=== PATIENT | female | born 1975 | race Caucasian/White ===

== ENCOUNTER → 2020-03-21 11:20 | Outpatient (POV) | payer MEDICAID, SELFPAY | PROVIDERS: PCP Emergency Medicine; Visit Provider Specialist | DX: M79.601 Pain in right arm (principal); M54.2 Cervicalgia; R20.0 Anesthesia of skin; R20.2 Paresthesia of skin | CPT/HCPCS: 95886; 95909 ==

== ENCOUNTER 2020-03-24 12:54 | Outpatient (RCR) | payer MEDICAID, SELFPAY ==
--- NOTE | 2020-03-24 14:16 | HMH.PTOPEV ---
PT Outpatient Evaluation Rehab PT Outpatient Evaluation Start: 03/24/20 13:41 Freq: Status: Active Protocol: Document 03/24/20 13:42 ANGUS (Rec: 03/24/20 14:14 ANGUS [id number]) Electronically Signed By Ab Billingsley, PT 03/24/20 13:42 Outpatient Therapy Subjective History Subjective History Patient is a 45 year old female presenting to oupatient PT with reports of chronic cervical spine pain of insidious onset starting approx 10 years ago. She reports B radicular symptoms to both hands R>L. 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 Pt also reports complaints of upper thoracic spine pain. Pt reports cervicogenic headaches/migraines staring at sub-occipital musculature. Pt reports previous imaging indicating cervical bone spur, though no reports on site. Chief Complaint Pain,Stiff,Paresthesia, Decreased Windshield Repair Technician Strength Symptom Type Ache,Burning,Numbness,Tingling Symptoms Relieved By OTC Meds,Shaking Symptoms Aggravated By Physical Activity,Lifting Prior Functional Limitations Reaching,Lifting,Housework, Sleeping,Recreation Activity Current Functional Limitations Reaching,Lifting,Housework, Sleeping,Recreation Activity Symptom Description Intermittent Level of pain today (0-10) 4 Pain scale - at its best (0-10) 0 Pain scale - at its worst (0-10) 10 Cervical Eval Palpation Cervical Muscles R Suboccipital,R CT Junction,L CT Junction,R Upper Trapezius ,L Upper Trapezius,R Thoracic Paraspinals,L Thoracic Paraspinals Cervical/Thoracic Palpation Findings Tenderness Posture Head/C-Spine Posture Sitting Position C-Spine Flattened Head/C-Spine Posture Standing Position C-Spine Flattened Flexibility Deficits Upper Trapezius Muscle Length (R) Moderate Tightness,(L) Moderate Tightness Levaetor Scapulae Muscle Length (R) Moderate Tightness,(L) Moderate Tightness Pectoralis Minor Muscle Length (R) Moderate Tightness,(L) Moderate Tightness Passive Joint Mobility Cervical PIVM
== END 2020-03-24 12:59 | disposition home or self-care (01) ==
LOC: PT 12:54
PROVIDERS: PCP Emergency Medicine; Visit Provider Specialist
DX: G43.719 Chronic migraine without aura, intractable, without status migrainosus (principal); M54.2 Cervicalgia; M54.5 Low back pain; G89.29 Other chronic pain; G62.9 Polyneuropathy, unspecified
CPT/HCPCS: 97163

== ENCOUNTER → 2020-04-11 14:18 | Outpatient (POV) | payer MEDICAID, SELFPAY ==
[2020-04-11 14:41] VITALS: BP 145/91; PULSE 76; RESP 18; TEMP 36.6; O2SAT 99; BMI 23.3
--- NOTE | 2020-04-18 07:54 | HMH.PMCON ---
Assessment and Plan (1) Sacroiliitis Status: Chronic Category: Medical Code(s): M46.1 - Sacroiliitis, not elsewhere classified (2) Degenerative joint disease (DJD) of lumbar spine Status: Chronic Qualifiers: Spinal osteoarthritis complication: with radiculopathy Qualified Code(s): M47.26 - Other spondylosis with radiculopathy, lumbar region Category: Medical Code(s): M47.816 - Spondylosis without myelopathy or radiculopathy, lumbar region - Assessment and plan all Dx Assessment and Plan for all problems:: We will schedule bilateral SI joint injections for the patient. She may be a candidate for further treatment of her SI joint pain. We will start with this to see if this is beneficial to her. She has positive Vahid sign SI joint compression sign and Melissa's test bilaterally. I will follow-up with her after this reassess her symptoms at that time she has been instructed to call the office if she has any issues prior to her next appointment. Dr. Patiño has reviewed this note and agrees with this plan of care. This note was dictated using voice recognition software and may contain errors or omissions HPI - Data of Consult Consult date: 04/11/20 Requesting Physician: Dhara Saini APRN Primary Care Provider: Uli Ernandez MD - Consult Narrative Reason for consult: Back pain, History of present illness: Ms. Rosario is a 45 year old female who presents today for consultation in regards to low back upper back pain. Patient has had pain for several years she also suffers from migraine she rates her pain a 7 out of 10. Any increased activity increases pain while heat and stretching decrease pain. Patient used to see pain management in [facility] where she did get some trigger point injections that were helpful. She has numbness and tingling in all her extremities. She is currently on Suboxone. Patient is seeing neurology for her migraines. On assessment patient has extreme tenderness over her lower back specifically over her SI joints. CC: Dhara Saini APRN [facility] History I have reviewed the patient's past medical history: Yes Medical History: Reports:: Depression, Hypertension, Migraine Denies:: Cancer, Diabetes Mellitus Type 1, Diabetes Mellitus Type 2, MRSA *Have you ever received a pneumonia vaccine?: Yes *Have you received a flu vaccine this season?: Yes Other Medical History: Reports: Other Other Surgeries: Yes: Appendectomy, Colonoscopy, , Dilation and Curettage, Hysterectomy-Total Amputation: No Fractures: No - *Social History Smoking Status: Never smoker # Packs/Day (cigarettes): 1 Alcohol Intake: never Alcohol Intake Frequency:: other Substance Use Type: former substance user, opiates *Occupational Status:: other Housing: house Household Members: other *Travel in the last 8 weeks: None - Psychiatric History Pschychiatric History:: Reports:: Depression Family Hx:: Unable to obtain Review of Systems - Review of Systems ROS General: no recent weight change, no fever, no sleep disturbances Respiratory: no cough, no shortness of air, no recurring pulmonary infections Cardiovascular/Peripheral Vascular: No chest pain, No palpitations, no edema, no shortness of breath. Gastrointestinal: no new onset incontinence, normal bowel movements reported Genitourinary: no new onset incontinence Musculoskeletal: Back pain, SI joint pain Psychiatric: normal mood/ affect Neurological: [denies new onset weakness in extremities], [denies new onset balance issues] Meds Home Medications Medication Instructions Recorded Confirmed Type fluticasone propionate 50 INTRANASAL 01/20/20 03/21/20 History mcg/actuation nasal spray,suspension lactulose 10 gram/15 mL oral PO 01/20/20 03/21/20 History solution sertraline 100 mg tablet 100 mg PO DAILY tab 01/20/20 03/21/20 History cyanocobalamin (vitamin B-12) 1,000 mcg PO DAILY #90 tab 01/27/20 03/21/20 Rx
== END ==
PROVIDERS: PCP Emergency Medicine; Visit Provider Clinical Nurse Specialist Family Health
DX: M46.1 Sacroiliitis, not elsewhere classified (principal); M51.36 Other intervertebral disc degeneration, lumbar region
CPT/HCPCS: 99202

== ENCOUNTER → 2020-04-11 15:17 | Outpatient (CLI) | payer MEDICAID, SELFPAY | PROVIDERS: PCP Emergency Medicine; Visit Provider Specialist | DX: R06.81 Apnea, not elsewhere classified (principal); R06.83 Snoring; R53.83 Other fatigue; G43.719 Chronic migraine without aura, intractable, without status migrainosus | CPT/HCPCS: 95806; 99202 ==

== ENCOUNTER 2020-04-22 11:18 | Day surgery (SDC) | payer MEDICAID, SELFPAY ==
[2020-04-22 11:29] VITALS: BP 116/71; PULSE 81; RESP 18; TEMP 36.6; O2SAT 100; BMI 25.2
--- NOTE | 2020-04-22 11:51 | HMH.PMPROC ---
- Procedure Date: 04/22/20 Time: 11:51 Anesthesiologist:: Klebre Patiño MD Complications:: None Pre-procedure Diagnosis:: Sacroiliitis Post-procedure Diagnosis:: Same Indications for Procedure:: This patient has a pleasant 45-year-old white female who we are treating for bilateral hip pain. She is tender over both SI joints. She has a positive Melissa's test bilaterally. She is positive Vahid test bilaterally. She has a positive SI joint compression test bilaterally. We will do bilateral SI joint injections under fluoroscopy today to help with her pain symptoms. Procedure Details:: B/L SI joint injection under fluoroscopy Informed consent was obtained and the risks and benefits of the procedure was explained to the patient. The patient was taken to the procedure room and placed prone on the procedure table. The patient was prepped using ChloraPrep. The skin and subcutaneous tissues overlying the SI joints were anesthetized using lidocaine. I placed a 22-gauge needle first in the left SI joint and second in the right SI joint. Needle placement was confirmed with dye. After this we injected 5 mL bupivacaine 0.25% and Depo-Medrol 40 mg into each SI joint. Patient tolerated the procedure well with no complication. Plan and Disposition:: We will follow-up with her in 2 weeks. Will reevaluate symptoms at that time.
[2020-04-22 11:57] VITALS: BP 140/78; PULSE 89
[2020-04-22 11:58] VITALS: BP 144/78; PULSE 85; RESP 18; O2SAT 99
[2020-04-22 12:05] VITALS: BP 112/73; PULSE 80; RESP 18; O2SAT 100
== END 2020-04-22 12:05 | disposition home or self-care (01) ==
LOC: SC.PAINP 11:19
PROVIDERS: PCP Emergency Medicine; Visit Provider Anesthesiology
DX: M46.1 Sacroiliitis, not elsewhere classified (principal); Z72.0 Tobacco use; F41.9 Anxiety disorder, unspecified; F32.9 Major depressive disorder, single episode, unspecified; G43.909 Migraine, unspecified, not intractable, without status migrainosus; Z90.710 Acquired absence of both cervix and uterus; Z90.49 Acquired absence of other specified parts of digestive tract
CPT/HCPCS: 27096; G0260; J1030; Q9966

== ENCOUNTER → 2020-05-13 09:29 | Outpatient (CLI) | payer MEDICAID, SELFPAY ==
[2020-05-13 13:24] LABS: Coronavirus 19 IgG Antibody Negative (Negative); Coronavirus 19 IgM Antibody Negative (Negative)
== END ==
PROVIDERS: Visit Provider Internal Medicine Gastroenterology
DX: Z01.818 Encounter for other preprocedural examination (principal)
CPT/HCPCS: 36415; 86328

== ENCOUNTER 2020-05-16 09:15 | Day surgery (SDC) | payer MEDICAID, SELFPAY ==
[2020-05-11 13:34] VITALS: BMI 25.4
[2020-05-16] VITALS (7 sets, daily range): BP systolic 91–123; BP diastolic 43–81; PULSE 65–78; RESP 16–18; TEMP 36.8–36.9; O2SAT 96–100
--- NOTE | 2020-05-16 10:38 | P.PCN_ITS ---
[facility] Procedure Note Procedure Note:: Colonoscopy Procedure Report: Colonoscopy Endoscopist: Osvaldo Boles II, MD Referring physician: Uli Ernandez MD Date of Procedure: May 16, 2020 Equipment: Olympus 180 variable stiffness pediatric colonoscope Sedation: MAC sedation Indication: Mrs. Rosario is a 45-year-old female with longstanding cons tipation/obstipation with incomplete defecation. She has been on various therapies in the past (docusate, Amitiza, Movantik, etc.) with variable improvement. She was taking lactulose twice daily. She has gone up to 16 days without a bowel movement. She did have an attempted colonoscopy in [facility] in [facility] which was incomplete because of the bowel preparation. She has moderate bloating. She reports no significant abdominal pain rectal bleeding or weight loss. She reports no family history of colon cancer. The patient is on Suboxone. Procedure: Prior to the procedure, a history and physical exam was performed, and patient's medications and allergies were reviewed. The risks, benefits and alternatives of the sedation and procedure were discussed with the patient. All questions were answered and informed consent was obtained. The patient was brought to the procedure room. Patient identification and proposed procedure were verified by the physician and the nurse. The patient was placed in a left lateral decubitus position and the scope was passed under direct vision. Throughout the procedure, the patient's blood pressure, pulse, and oxygen saturations were monitored continuously. The colonoscopy was accomplished without difficulty. The patient tolerated the procedure well. Findings: On digital rectal examination there was normal rectal tone. There were no external hemorrhoids. The colonoscope was introduced through the anal canal to the rectum and advanced to the cecum. The cecum visualization was marred with a moderate amount of brown liquid stool and residue. The remaining ascending and transverse colon and mucosa were grossly normal. There were scattered diverticuli throughout the descending and sigmoid colon (LEFT colon). The rectum itself was normal. Upon retroflexion within the rectum there were grade 1-2 internal hemorrhoids. The preparation was fair to poor throughout with Gambier Preparation Score of 5?6 out of 9. The cecal time was 10 minutes. Impression: 1. Left-sided diverticulosis 2. Grade 1-2 internal hemorrhoids Plan: I will discuss treatment options. I would certainly consider combination fiber bowel regimen with Linzess.
== END 2020-05-16 11:25 | disposition home or self-care (01) ==
LOC: OUTP 09:16
PROVIDERS: PCP Emergency Medicine; Visit Provider Internal Medicine Gastroenterology
PROC: 0DJD8ZZ Inspection of Lower Intestinal Tract, Via Natural or Artificial Opening Endoscopic (ICD-10-PCS; CPT 45378; principal; 2020-05-16 10:30)
DX: K57.30 Diverticulosis of large intestine without perforation or abscess without bleeding (principal); K64.0 First degree hemorrhoids; K59.02 Outlet dysfunction constipation; K59.09 Other constipation; E78.5 Hyperlipidemia, unspecified; K21.9 Gastro-esophageal reflux disease without esophagitis; Z88.5 Allergy status to narcotic agent; Z88.0 Allergy status to penicillin; Z88.8 Allergy status to other drugs, medicaments and biological substances; Z79.899 Other long term (current) drug therapy
CPT/HCPCS: 45378

== ENCOUNTER → 2020-06-06 08:28 | Outpatient (CLI) | payer MEDICAID, SELFPAY ==
--- NOTE | 2020-06-06 08:29 | MR_ITS ---
PROCEDURE: MR HEAD/BRAIN WO CON CLINICAL INDICATION: Intractable migraines with recurrent thunderclap headaches Occasional loss of consciousness COMPARISON: No exams were available for comparison TECHNIQUE: Routine multiplanar multi echo sequences are performed without gadolinium enhancement. FINDINGS: No midline shift, mass effect, intracranial hemorrhage, or hydrocephalus is evident. No evidence of acute infarction. The the cerebellopontine angles, cerebellum, and brainstem are unremarkable. The pituitary, optic chiasm, corpus callosum, and craniocervical junction have an unremarkable appearance. No mastoid effusion or sinus air-fluid level. There is some mucosal thickening of the ethmoid sinuses on both sides right slightly greater than left. Unremarkable periventricular white matter signal intensity IMPRESSION: 1. No acute intracranial findings. 2. Mild ethmoid sinus disease Dictated by: Emery Hope MD 06/08/2020 08:07 Electronically signed by Emery Hope MD in [place] 06/08/2020 08:07
--- NOTE | 2020-06-06 08:33 | XR_ITS ---
PROCEDURE: XR ORBIT BILATERAL MIN 4V CLINICAL INDICATION: RULE OUT METAL FOREIGN BODY FOR MRI COMPARISON: No exams were available for comparison TECHNIQUE: AP views are obtained of the orbits with the patient looking up and down. FINDINGS: No radio opaque foreign bodies evident. IMPRESSION: No radio opaque orbital foreign body identified. Dictated by: Slava Asencio 06/06/2020 08:51 Electronically signed by Slava Asencio in [place] 06/06/2020 08:51
--- NOTE | 2020-06-06 09:31 | CT_ITS ---
Procedure: CT ANGIO HEAD CLINICAL HISTORY: eval intracranial circulation,explosive headache Severe headache COMPARISON: No exams were available for comparison TECHNIQUE: IV Contrast: 100ml Optiray 350 Axial images obtained with sagittal and coronal reformats. All CT scans at the facility use one or more dose reduction, viz: automated exposure control, ma/kV adjustment per patient size (including targeted exams where dose is matched to indication, i.e. head), or iterative reconstruction technique. FINDINGS: No aneurysm, AVM, major intracranial occlusive process, or enhancing lesion is evident. No evidence of sagittal sinus thrombosis. Structures are midline. No hydrocephalus. The vertebral basilar system has an unremarkable appearance. Incidental note made of mild ethmoid sinus disease. IMPRESSION: Negative CT angiogram of the brain Dictated by: Emery Hope MD 06/08/2020 08:17 Electronically signed by Emery Hope MD in [place] 06/08/2020 08:17
== END ==
PROVIDERS: PCP Emergency Medicine; Visit Provider Specialist
DX: G43.719 Chronic migraine without aura, intractable, without status migrainosus (principal); G44.53 Primary thunderclap headache; G47.19 Other hypersomnia; G47.30 Sleep apnea, unspecified; R06.83 Snoring; R55 Syncope and collapse; H05.53 Retained (old) foreign body following penetrating wound of bilateral orbits
CPT/HCPCS: 70200; 70496; 70551; Q9967

== ENCOUNTER → 2020-08-15 14:28 | Outpatient (CLI) | payer MEDICAID, SELFPAY ==
[2020-08-15 16:39] LABS: Coronavirus 19 IgG Antibody Negative (Negative); Coronavirus 19 IgM Antibody Negative (Negative)
== END ==
PROVIDERS: Visit Provider Specialist
DX: Z03.818 Encounter for observation for suspected exposure to other biological agents ruled out (principal)
CPT/HCPCS: 36415; 86328

== ENCOUNTER → 2020-09-05 11:15 | Outpatient (POV) | payer MEDICAID, SELFPAY ==
--- NOTE | 2020-09-05 12:20 | HMH.PAINSOAP ---
[facility] Pain Management SOAP Note Subjective:: Patient is a very pleasant 45-year-old white female who we are treating for bilateral hip pain. She had SI joint injections back and April and has done extremely well. She is still having relief from these. Today she comes with a complaint of upper neck pain and headache she rates her pain today 3 out of 10. She is extremely tender at the base of her skull. Patient and I discussed occipital neuralgia and occipital nerve block she would like to move forward with this. ROS General: no recent weight change, no fever, no sleep disturbances Respiratory: no cough, no shortness of air, no recurring pulmonary infections Cardiovascular/Peripheral Vascular: No chest pain, No palpitations, no edema, no shortness of breath. Gastrointestinal: no new onset incontinence, normal bowel movements reported Genitourinary: no new onset incontinence Musculoskeletal: Headache, neck pain Psychiatric: normal mood/ affect Neurological: [denies new onset weakness in extremities], [denies new onset balance issues] Objective:: Physical Exam General: Alert and oriented x3, no acute distress, pleasant and cooperative, [on room air] Lungs: Resps E/U, Symmetrical chest expansion, Eyes: PERRL Musculoskeletal: Flexion and extension of cervical spine somewhat guarded secondary to pain, deep tendon reflexes normal, strength in upper and lower extremities [5/5], slightly antalgic gait noted Neurological: speech clear, periodontist equal, no gross sensory deficits Assessment:: Occipital neuralgia Plan:: We will move forward with bilateral occipital nerve blocks for the patient given her symptomology I do believe they would benefit her. I will follow-up with her after this reassess her symptoms at that time she has been instructed to call the office if she has any issues prior to her next appointment. Dr. Patiño has reviewed this note and agrees with this plan of care. This note was dictated using voice recognition software and may contain errors or omissions [facility] History I have reviewed the patient's past medical history: Yes Medical History: Reports:: Depression, Diabetes Mellitus Type 1, Gastroesophageal Reflux Disease(GERD), Hyperlipidemia, Hypertension, Migraine Denies:: Cancer, Diabetes Mellitus Type 2, Internal Pacemaker, MRSA, Seizures *Have you ever received a pneumonia vaccine?: No *Have you received a flu vaccine this season?: No Other Medical History: Reports: Arthritis, Blood Transfusion Reaction, Other Other Surgeries: Yes: Appendectomy, Colonoscopy, , Dilation and Curettage, Hysterectomy-Total, Hysterectomy-Partial, Other. No: Pacemaker Amputation: No Fractures: No - *Social History Smoking Status: Current every day smoker Tobacco Type: cigarettes # Packs/Day (cigarettes): 1 Alcohol Intake: never Alcohol Intake Frequency:: other Substance Use Type: opiates *Occupational Status:: disabled Housing: house Household Members: other *Travel in the last 8 weeks: None - Psychiatric History Pschychiatric History:: Reports:: Depression Family Hx:: Unable to obtain
[2020-09-05 12:47] VITALS: BP 117/85; PULSE 85; RESP 18; O2SAT 98; BMI 25.8
== END ==
PROVIDERS: PCP Emergency Medicine; Visit Provider Clinical Nurse Specialist Family Health
DX: M54.81 Occipital neuralgia (principal)
CPT/HCPCS: 99212

== ENCOUNTER 2020-09-16 10:26 | Day surgery (SDC) | payer MEDICAID, SELFPAY ==
[2020-09-16 11:36] VITALS: BP 129/79; PULSE 63; RESP 18; TEMP 36.7; O2SAT 100; BMI 25.9
--- NOTE | 2020-09-16 11:55 | HMH.PMPROC ---
- Procedure Date: 09/16/20 Time: 11:55 Anesthesiologist:: Kleber Patiño MD Complications:: None Pre-procedure Diagnosis:: Bilateral occipital neuralgia Post-procedure Diagnosis:: Same Indications for Procedure:: This patient is a pleasant 45-year-old white female who we have been treating for bilateral hip pain. She has previously had SI joint injections with good relief of her pain symptoms. She now complains of pain over the occiput. She has pain in the distribution of the greater and lesser occipital nerves bilaterally. We will plan on bilateral occipital nerve blocks today help her with her pain symptoms. Procedure Details:: Bilateral occipital nerve blocks Informed consent was obtained and the risk and benefits of the procedure was explained to the patient. Patient was taken to the procedure room. The occiput was cleansed using ChloraPrep. A 25-gauge needle was used first on the left side then on the right side to inject 5 mL bupivacaine 0.25% Depo-Medrol 40 mg in the distribution of the lesser and greater occipital nerves on each side. We used a total of 80 mg Depo-Medrol for both sides. Patient tolerated procedure well with no complications. Plan and Disposition:: We will follow-up with him in 2 weeks. Will reevaluate symptoms at that time.
[2020-09-16 12:21] VITALS: BP 180/98; PULSE 88; RESP 18
[2020-09-16 12:22] VITALS: BP 174/88; PULSE 85; RESP 18; O2SAT 98
[2020-09-16 12:40] VITALS: BP 136/84; PULSE 57; RESP 18; O2SAT 100
== END 2020-09-16 12:40 | disposition home or self-care (01) ==
LOC: SC.PAINP 10:27
PROVIDERS: PCP Emergency Medicine; Visit Provider Anesthesiology
DX: M54.81 Occipital neuralgia (principal); I10 Essential (primary) hypertension; K21.9 Gastro-esophageal reflux disease without esophagitis; F32.9 Major depressive disorder, single episode, unspecified; Z88.5 Allergy status to narcotic agent; Z88.0 Allergy status to penicillin; Z88.8 Allergy status to other drugs, medicaments and biological substances; Z79.899 Other long term (current) drug therapy
CPT/HCPCS: 64405; J1030

== ENCOUNTER → 2021-01-18 13:52 | Outpatient (CLI) | payer MEDICAID, SELFPAY ==
[2021-01-18 14:07] LABS: Alanine Aminotransferase 30 U/L (12-78); Albumin Level 4.5 g/dl (3.5-5.0); Albumin/Globulin Ratio 1.8 (1.1-1.8); Alkaline Phosphatase 95 U/L (38-126); Anion Gap 11.6 mEq/L (5-15); Aspartate Amino Transferase 31 U/L (14-36); Bilirubin,Total 0.3 mg/dl (0.2-1.3); Blood Urea Nitrogen 11 mg/dl (7-17); Calcium 9.6 mg/dl (8.4-10.2); Carbon Dioxide 28 mmol/L (22.0-30.0); Chloride 105 mmol/L (98-107); Chol/HDL Ratio 3.6 (1-3.5); Cholesterol 180 mg/dl (140-200); Estimated Glomerular Filt Rate 59 ml/min (>60); GFR (African American) 72 ML/MIN (>60); Globulin 2.5 g/dL (1.3-3.2); Glucose 166 mg/dl (74-100); HDL Cholesterol 50 mg/dl (40-60); Potassium 3.6 mmoL/L (3.5-5.1); Sodium 141 mmol/L (136-145); Triglycerides 242 mg/dl (30-150); VLDL Cholesterol 48 mg/dL (0-40)
[2021-01-18 14:18] LABS: Direct LDL Cholesterol 92.84 mg/dL (100-129)
[2021-01-18 14:23] LABS: 25-OH Vitamin D, Total 28.4 ng/mL (30-100)
[2021-01-18 14:26] LABS: Basophils # 0.1 K/mm3 (0-0.2); Basophils % 0.8 % (0.1-2.0); Eosinophils # 0.4 K/mm3 (0.0-0.4); Eosinophils % 5.1 % (0.1-12.0); Hematocrit 43.7 % (37.0-47.0); Hemoglobin 14.2 g/dL (12.2-16.2); Lymphocytes # 1.9 K/mm3 (0.7-4.5); Lymphocytes % 23.2 % (10-50); Mean Corpuscular HGB Conc 32.5 g/dL (31.8-35.4); Mean Corpuscular Hemoglobin 30.5 pg (27.0-31.2); Mean Corpuscular Volume 93.9 fl (81-99); Mean Platelet Volume 8.9 fl (7.4-10.4); Monocytes # 0.3 K/mm3 (0.1-1.0); Monocytes % 3.2 % (1.7-9.3); Neutrophils # 5.4 K/mm3 (1.8-7.8); Neutrophils % 67.7 % (37.0-80.0); Platelet Count 299 K/mm3 (142-424); Red Blood Count 4.65 M/mm3 (4.20-5.40); Red Cell Distribution Width 13.1 % (11.5-17.5)
[2021-01-18 14:37] LABS: Thyroid Stimulating Hormone 1.88 uIU/mL (0.465-4.68)
[2021-01-18 21:16] LABS: Free T4 (Free Thyroxine) 0.89 ng/dl (0.78-2.19)
== END ==
PROVIDERS: Visit Provider Emergency Medicine
DX: R53.83 Other fatigue (principal); E55.9 Vitamin D deficiency, unspecified; I10 Essential (primary) hypertension
CPT/HCPCS: 80053; 80061; 82306; 84439; 84443; 85025

== ENCOUNTER 2021-01-23 21:16 | Day surgery (SDC) | payer MEDICAID, SELFPAY ==
--- NOTE | 2021-01-23 21:09 | ECG_ITS ---
APPROVED REPORT Exam: Resting ECG HR:79 bpm ECG Measurements Heart Rate 79 AXES DE 152 P 56 QRSd 84 QRS 37 QT 398 T 39 QTc 456 Conclusion Normal sinus rhythm Normal ECG Electronically signed by : Miguel Angel Herrera, 01/24/2021 19:36:32
[2021-01-23 21:17] VITALS: RESP 20; TEMP 36.5; O2SAT 98; BMI 28.0
--- NOTE | 2021-01-23 21:57 | XR_ITS ---
PROCEDURE: XR CHEST 2V CLINICAL HISTORY: chest pain COMPARISON: No exams were available for comparison FINDINGS: The cardiomediastinal silhouette and pulmonary vascularity are within normal limits. The lungs are clear without infiltrates, suspicious nodules, or pleural effusions. No acute bony abnormalities. IMPRESSION: No acute findings. Dictated by: Emery Hope MD 01/24/2021 05:39 Emery Hope MD in [place] 01/24/2021 05:39
[2021-01-23 22:08] LABS: Basophils # 0.1 K/mm3 (0-0.2); Basophils % 0.5 % (0.1-2.0); Eosinophils # 0.5 K/mm3 (0.0-0.4); Hematocrit 38.7 % (37.0-47.0); Lymphocytes % 26.3 % (10-50); Mean Corpuscular HGB Conc 33.6 g/dL (31.8-35.4); Mean Corpuscular Hemoglobin 30.2 pg (27.0-31.2); Mean Platelet Volume 8.2 fl (7.4-10.4); Monocytes # 0.4 K/mm3 (0.1-1.0); Monocytes % 3.5 % (1.7-9.3); Neutrophils # 7.6 K/mm3 (1.8-7.8); Neutrophils % 65.7 % (37.0-80.0); Platelet Count 264 K/mm3 (142-424); Red Cell Distribution Width 13.2 % (11.5-17.5); White Blood Count 11.5 K/mm3 (4.8-10.8)
[2021-01-23 22:09] LABS: Chloride 106 mmol/L (98-107); Potassium 3.2 mmoL/L (3.5-5.1); Sodium 138 mmol/L (136-145)
[2021-01-23 22:12] LABS: Anion Gap 9.2 mEq/L (5-15); Blood Urea Nitrogen 15 mg/dl (7-17); Calcium 9.7 mg/dl (8.4-10.2); Carbon Dioxide 26 mmol/L (22.0-30.0); Creatinine Clearance Estimated 94 mL/min (50-200); Estimated Glomerular Filt Rate 59 ml/min (>60); GFR (African American) 72 ML/MIN (>60); Glucose 106 mg/dl (74-100)
[2021-01-23 22:17] LABS: C-Reactive Protein 2.1 mg/L (0-4)
[2021-01-23 22:40] LABS: Troponin I < 0.01 ng/ml (0.00-0.034)
[2021-01-23 22:48] LABS: Procalcitonin 0.043 ng/mL (0.0-2.0)
[2021-01-23 22:57] LABS: Erythrocyte Sedimentation Rate 18 mm/hr (0-20)
--- NOTE | 2021-01-23 23:09 | HMH.EDCP ---
ED Disposition Clinical Impression: Unstable angina pectoris, Tobacco use, Overweight (BMI 25.0-29.9) Hypertension Qualifiers: Hypertension type: essential hypertension Qualified Code(s): I10 - Essential (primary) hypertension Disposition: Admitted as Observation Condition on Discharge: Good Referrals: Uli Ernandez MD [Primary Care Provider] - - Critical Care Critical Care Time: No Attestation: On 01/23/21, the high probability of a clinically significant, sudden or life threatening deterioration of the following system(s) required my full and direct attention, intervention and personal management. The time I documented below is in addition to time spent performing reported procedures but includes the following listed in this critical care notation. Medical Decision Making - Medical Records Medical records reviewed: Yes: I reviewed the patient's medical records. - Indra Inquiry Pt receiving controlled substance: No Vital Signs: 01/23/21 21:17 Temperature 97.7 F Temperature Source Oral Respiratory Rate 20 02 Sat by Pulse Oximetry 98 Oxygen Delivery Method Room Air - Lab Data Lab results reviewed: Yes: I reviewed the patient's lab results. Lab Results 01/23/21 21:50: WBC 11.5 H, RBC 4.30, Hgb 13.0, Hct 38.7, MCV 90.0, MCH 30.2, MCHC 33.6, RDW 13.2, Plt Count 264, MPV 8.2, Neut % (Auto) 65.7, Lymph % (Auto) 26.3, [place] % (Auto) 3.5, Eos % (Auto) 4.0, Baso % (Auto) 0.5, Neut # (Auto) 7.6, Lymph # (Auto) 3.0, [place] # (Auto) 0.4, Eos # (Auto) 0.5 H, Baso # (Auto) 0.1, ESR 18 01/23/21 21:50: Sodium 138, Potassium 3.2 L, Chloride 106, Carbon Dioxide 26, Anion Gap 9.2, BUN 15, Creatinine 1.00, Estimated Creat Clear 94, Estimated GFR 59, Est GFR ( Amer) 72, Glucose 106 H, Calcium 9.7, Troponin I < 0.01, C-Reactive Protein 2.1, Procalcitonin 0.043 Result diagrams: 01/23/21 21:50 01/23/21 21:50 Orders (Tests/Meds): ED MEDICATIONS Generic Name Dose Route Start Last Admin Trade Name Lanceq PRN Reason Stop Dose Admin Sodium Chloride 1,000 mls @ 999 mls/hr 01/23/21 22:15 01/23/21 22:13 Sod Chlor 0.9% 1000ml Bag IV 01/23/21 23:15 999 mls/hr .Q1H1M ORLIN Administration Sodium Chloride 8 ml 01/23/21 22:06 Sodium Chloride 0.9% 10ml Vial IV 02/22/21 22:05 NEEDED PRN dilute pepcid Discontinued Medications Generic Name Dose Route Start Last Admin Trade Name Freq PRN Reason Stop Dose Admin Acetaminophen 650 mg 01/23/21 22:09 01/23/21 22:55 Acetaminophen 325mg Tab PO 01/23/21 22:10 650 mg ONCE ONE Administration Famotidine 20 mg 01/23/21 22:06 01/23/21 22:48 Famotidine 20mg/2ml Vial IV 01/23/21 22:07 20 mg ONCE ONE Administration Metoclopramide HCl 10 mg 01/23/21 22:06 01/23/21 22:48 Metoclopramide Hcl 10mg/2ml Vial IVP 01/23/21 22:07 10 mg ONCE ONE Administration Ondansetron HCl 4 mg 01/23/21 22:06 01/23/21 22:48 Ondansetron 4mg/2ml Vial IV 01/23/21 22:07 4 mg ONCE ONE Administration ORDERS Category Date Time Status CXR 2 view (NOT portable) [XR chest 2V] Stat Exams 01/23/21 21:57 Taken Covid-19 Nasal PCR ([facility]) Routine Lab 01/23/21 21:53 Received Troponin I Q3H Lab 01/24/21 01:00 Ordered Troponin I Q3H Lab 01/24/21 04:00 Ordered - Radiology Data #1 Image(s): Chest Image Reviewed: Yes I reviewed the patient's radiology image Preliminary Findings: Normal/NAD - ECG Data Tracing #1 Normal Sinus Rhythm: Yes Ischemic changes: non-specific ST-T wave changes Medical Decision Narrative: has what sds like angina with sig risk factors and will admit with orders Chest Pain HPI - General Chief Complaint: Chest Pain Stated Complaint: chest pain with h/o HI Time Seen by Provider: 03/15/21 22:00 Mode of Arrival: Ambulatory Source of Information: Patient, Spouse, Medical Record Limitations: No Limitations Description of Symptoms (Recalled from ER Triage Doc. by RN): Pt c/o chest pain that has
[2021-01-24] VITALS (14 sets, daily range): BP systolic 114–136; BP diastolic 70–89; PULSE 60–88; RESP 12–20; TEMP 36.5–36.6; O2SAT 95–100
--- NOTE | 2021-01-24 | IR_ITS ---
APPROVED REPORT Patient Location: Inpatient Fashion Merchandiser: ELENA Sung RT (R) PROCEDURES Left heart catheterization Left ventriculogram Selective coronary angiogram INDICATION Risk factors for coronary disease, Unstable angina Informed consent was obtained prior to the procedure. COMPLICATIONS NONE Estimated Blood Loss: LESS THAN 10 ML TECHNIQUE One percent lidocaine used to anesthetize the right anterior aspect of the wrist. The right radial artery was accessed via the Seldinger technique. A 6 Bel[place]ian sheath was placed in the right radial artery. 2.5 mg of verapamil, 800 mcg of nitroglycerin, 1mg Lidocaine and 5000 U Heparin were given through the arterial sheath. The trap catheter was also used to perform left heart catheterization, left ventriculogram and selective coronary angiogram. At the end of the procedure the sheath was removed good hemostasis was achieved using Traclet band, patient was transferred to the postop holding area in stable condition. ANGIOGRAPHIC RESULTS The left main artery Normal The left anterior descending artery Normal The circumflex artery Dominant normal The right coronary artery Nondominant normal The SMITH ventriculogram reveals Normal 65% The left ventricular end-diastolic pressure 10 mmHg IMPRESSION Normal coronary arteries Normal ejection fraction Normal left ventricular end-diastolic pressure PLAN 1. Medical management 2. Evaluation of noncardiac chest pain Electronically signed by : Larry Chiang, 01/24/2021 14:47:14
[2021-01-24 01:50] LABS: Troponin I < 0.01 ng/ml (0.00-0.034)
[2021-01-24 04:30] LABS: Troponin I < 0.01 ng/ml (0.00-0.034)
--- NOTE | 2021-01-24 06:00 | CA_ITS ---
APPROVED REPORT EXAM: Comprehensive 2D, Doppler, and color-flow Echocardiogram Information Systems Security Developer: Destini Velez RVT Ht: 5 ft 9 in Wt: 190lbs BSA: 2.02 BP: 142/86 mmHg Indications: ANGINA,GERD,SMOKER,HTN,HLD 2D Dimensions LVOT 1.98 cm (M/F) 1.5-2.5 LA Volume 19.30 mL LA Volume Index 9.55 mL/m2 (M/F) 16-34 M-Mode Dimensions RVDd 2.43 cm (0.9-2.6) LA Diam 3.16 cm (1.9-4.0) LVDd 5.00 cm (3.5-5.7) Ao Diam 2.83 cm (2.0-3.7) LVDs 3.25 cm (3.5-5.7) IVSd 0.71 cm (0.6-1.1) PWd 0.61 cm (0.6-1.1) EF (Teich) 64.00% FS 35.00% EDV (Teich) 118.20 mL ESV (Teich) 42.50 mL LV Diastology E Decel Time 210.00 (160-240 msec) E/A Ratio 1.0 MED E' 7.80 (< 7 cm/sec) E'/MED E' Ratio 9.08 (>14) LAT E' 12.30 (<10 cm/sec) E/LAT E' Ratio 5.76 (>14) Mitral Valve MV E Max Julio. 71.00 (40-130 cm/s) MV A Velocity 71.00 (40-130 cm/s) E/A Ratio 0.99 MV Decel. Time 210.00 (160-240 ms) MV PHT 62.00 ms Pulmonary Valve PV Peak Velocity 66.00 (50-150 cm/s) Tricuspid Valve TR P. Velocity 237.00 cm/s RAP Estimate 10.00 mmHg RVSP 32.50 mmHg Left Ventricle Left atrium normal size, left ventricle is normal size, there is no concentric left ventricular hypertrophy, visually estimated ejection fraction 55% with no regional wall motion abnormality, diastolic parameters are inconclusive. Right Ventricle Right atrium and right ventricle are normal size and contractility. Aortic Valve Aortic valve is grossly normal, there is no aortic stenosis or aortic insufficiency. Mitral Valve Mitral valve grossly normal, there is trace mitral regurgitation. Tricuspid Valve Tricuspid grossly normal, there is trace tricuspid regurgitation. Pulmonic Valve Pulmonic valve is poorly visualized. Great Vessels Aortic root is normal size. Pericardium No significant pericardial effusion noted. Conclusion 1. Normal left ventricular size, preserved left ventricular systolic function, visually estimated ejection fraction 55% with no regional wall motion abnormality, diastolic parameters are inconclusive. 2. Trace mitral and tricuspid regurgitation. 3. No significant pericardial effusion noted. Electronically signed by : Cristian Craft, 01/24/2021 20:05:54
[2021-01-24 06:18] LABS: Anion Gap 9.6 mEq/L (5-15); Blood Urea Nitrogen 13 mg/dl (7-17); Carbon Dioxide 26 mmol/L (22.0-30.0); Chloride 107 mmol/L (98-107); Chol/HDL Ratio 3.5 (1-3.5); Cholesterol 130 mg/dl (140-200); Creatinine Clearance Estimated 104 mL/min (50-200); Estimated Glomerular Filt Rate 67 ml/min (>60); GFR (African American) 81 ML/MIN (>60); Glucose 93 mg/dl (74-100); HDL Cholesterol 37 mg/dl (40-60); Magnesium 1.7 mg/dl (1.6-2.3); Potassium 3.6 mmoL/L (3.5-5.1); Sodium 139 mmol/L (136-145); Triglycerides 124 mg/dl (30-150); VLDL Cholesterol 25 mg/dL (0-40)
[2021-01-24 06:25] LABS: Basophils # 0.1 K/mm3 (0-0.2); Basophils % 0.7 % (0.1-2.0); Eosinophils # 0.4 K/mm3 (0.0-0.4); Eosinophils % 5.1 % (0.1-12.0); Hematocrit 35.1 % (37.0-47.0); Hemoglobin 11.8 g/dL (12.2-16.2); Lymphocytes # 2.5 K/mm3 (0.7-4.5); Lymphocytes % 28.8 % (10-50); Mean Corpuscular HGB Conc 33.5 g/dL (31.8-35.4); Mean Corpuscular Hemoglobin 30.3 pg (27.0-31.2); Mean Corpuscular Volume 90.5 fl (81-99); Mean Platelet Volume 8.3 fl (7.4-10.4); Monocytes # 0.4 K/mm3 (0.1-1.0); Monocytes % 4.5 % (1.7-9.3); Neutrophils # 5.4 K/mm3 (1.8-7.8); Neutrophils % 60.9 % (37.0-80.0); Platelet Count 219 K/mm3 (142-424); Red Blood Count 3.88 M/mm3 (4.20-5.40); Red Cell Distribution Width 13.2 % (11.5-17.5); White Blood Count 8.8 K/mm3 (4.8-10.8)
[2021-01-24 06:29] LABS: Direct LDL Cholesterol 66.44 mg/dL (100-129)
[2021-01-24 06:34] LABS: Calcium 8.5 mg/dl (8.4-10.2)
--- NOTE | 2021-01-24 08:00 | PC.NURSE ---
Pt sleeping at this time. No needs
--- NOTE | 2021-01-24 09:56 | HMH.CNCARD ---
<Radha Dick - Last Filed: 01/24/21 09:56> History of Present Illness Consult date: 01/24/21 Requesting physician: Uli Ernandez Consult reason: chest pain Chief complaint: chest pain History of present illness: This is a 46-year-old white female who presented to the emergency department with complaints of chest pain. The patient states that she feels a pounding pressure sensation in the midsternal aspect of her chest and radiates to her left arm and between her shoulder blades and up into her neck. The patient states that the chest pain has been going on for the last 5 or 6 days but got significantly worse through the night last night and she decided to come into the emergency department. She rates the pain a 6 out of 10 in intensity. It is associated with shortness of breath, diaphoresis and occasionally nausea and vomiting. She states that she does not get nauseous or vomit every time but on occasion this does happen. She states that she has a severe headache today. She states that her chest pain gets worse with exertion and nothing really helps to improve the pain. She states that the episodes of chest pain last several minutes before they resolve on their own. The patient states that she has never had symptoms like this before. She does report a family history of ischemic heart disease in both her mother and her father. She does have hypertension, hyperlipidemia and is a tobacco user. [facility] History I have reviewed the patient's past medical history: Yes Medical History: Reports:: Depression, Gastroesophageal Reflux Disease(GERD), Hyperlipidemia, Hypertension, Migraine Denies:: Cancer, Diabetes Mellitus Type 1, Diabetes Mellitus Type 2, Internal Pacemaker, MRSA, Seizures *Have you ever received a pneumonia vaccine?: No *Have you received a flu vaccine this season?: No Other Medical History: Reports: Arthritis, Other. Denies: Blood Transfusion Reaction Other Surgeries: Yes: Appendectomy, Colonoscopy, , Dilation and Curettage, Hysterectomy-Total, Hysterectomy-Partial, Other (uterine ablation). No: Pacemaker Amputation: No Fractures: No - *Social History Smoking Status: Current every day smoker Tobacco Type: cigarettes # Packs/Day (cigarettes): 1 Alcohol Intake: never Alcohol Intake Frequency:: other Substance Use Type: opiates *Occupational Status:: unemployed Housing: house Household Members: spouse *Travel in the last 8 weeks: None - Psychiatric History Pschychiatric History:: Reports:: Depression Family Hx:: Cancer, Hypertension Meds Home Medications Medication Instructions Recorded Confirmed Type buprenorphine 8 mg-naloxone 2 mg 1 tab SUBLINGUAL DAILY 03/15/20 01/18/21 History sublingual tablet lactulose 10 gram/15 mL oral 1 g PO DAILY #45 ml 08/02/20 01/18/21 Rx solution ubrogepant 100 mg tablet 100 mg .ROUTE .COMPLEX #10 tab 08/02/20 01/18/21 Rx Pantoprazole Sodium 40 mg PO DAILY 09/16/20 01/18/21 History tizanidine 4 mg tablet 4 mg PO HS #30 tab 09/29/20 01/18/21 Rx cyanocobalamin (vitamin B-12) 1,000 mcg PO DAILY #90 tab 10/28/20 01/18/21 Rx 1,000 mcg tablet,extended release docusate sodium 100 mg capsule 100 mg PO BID #180 cap 10/28/20 01/18/21 Rx fluticasone furoate 27.5 See Rx Instructions .ROUTE 10/28/20 01/18/21 Rx mcg/actuation nasal .COMPLEX #5.9 milliliter spray,suspension atorvastatin 20 mg tablet See Rx Instructions .ROUTE 11/02/20 01/18/21 Rx .COMPLEX #30 tab erenumab-aooe 140 mg/mL 140 mg SQ QMONTH #1 ml 12/06/20 01/18/21 Rx subcutaneous auto-injector ergocalciferol (vitamin D2) 1,250 See Rx Instructions .ROUTE 12/21/20 01/18/21 Rx mcg (50,000 unit) capsule .COMPLEX #12 cap hydrochlorothiazide 12.5 mg capsule 12.5 mg PO DAILY #90 cap 12/21/20 01/18/21 Rx levocetirizine 5 mg tablet 5 mg PO DAILY #90 tab 12/21/20 01/18/21 Rx ropinirole 1 mg tablet 1 mg PO QHS #90 tab 12/21/20 01/18/21 Rx sertraline 100 mg tablet 100 mg PO DAILY #90 tab 12/21/20 01/18/21 Rx ibuprofen
--- NOTE | 2021-01-24 10:19 | HMH.PHAVTE ---
[facility] Pharmacy VTE Monitoring - Patient Demographics Admission date: 01/24/21 Report Date: 01/24/21 Time: 10:19 Allergies/Adverse Reactions: Patient Allergies morphine Allergy (Intermediate, Verified 01/18/21 10:41) Hives nalbuphine [From Nubain] Allergy (Intermediate, Verified 01/18/21 10:41) hives Penicillins Allergy (Intermediate, Verified 01/18/21 10:41) Hives promethazine [Phenergan] Allergy (Intermediate, Verified 01/18/21 10:41) Hives sumatriptan [From Imitrex] Allergy (Intermediate, Verified 01/18/21 10:41) Hives Height: 1.75 m Weight: 86.183 kg Patient Problems: Current Active Problems Unstable angina pectoris (Acute) Overweight (BMI 25.0-29.9) (Acute) Unstable angina (Acute) HLD (hyperlipidemia) (Chronic) Family history of ischemic heart disease (Chronic) Tobacco use (Chronic) Hypertension (Chronic) - VTE Risk Labs: VTE Related Lab Results Hgb 11.8 g/dL (12.2-16.2) L 01/24/21 05:05 Hct 35.1 % (37.0-47.0) L 01/24/21 05:05 Plt Count 219 K/mm3 (142-424) 01/24/21 05:05 BUN 13 mg/dl (7-17) 01/24/21 05:05 Creatinine 0.90 mg/dl (0.52-1.04) 01/24/21 05:05 Estimated Creat Clear 104 mL/min (50-200) 01/24/21 05:05 Clinical Trial Participant: No - Prophylaxis VTE Prophylaxis Ordered?: Yes Types of VTE Prophylaxis: TEDS Knee High
--- NOTE | 2021-01-24 11:00 | PC.NURSE ---
Pt resting. No needs/issues at this time.
--- NOTE | 2021-01-24 12:00 | PC.NURSE ---
Pt comes to nurses station and advised pt is feeling nauseated at this time. VO given for 4mg of zofran. Administered at this time.
--- NOTE | 2021-01-24 15:30 | HMH.HPDC ---
General - General Admission date:: 01/23/21 Discharge date: 01/24/21 *Admission Date: 01/24/21 *Chief complaint: Mid-Sternal Chest Pain *History of present illness: 46 YOF presented to the [facility] ED with past medical history of HTN, HLD, tobacco abuse, and family history of CAD for reports of mid-sternal CP, describes as a pounding and pressure . She admits pounding/pressure radiates up into her left neck, into her L arm, and back to hwer shoulder blades. She admits this pain has occurred for the last 5-6 days and tonight was worse than before. She reports having shortness of breath and diaphoresis during all episodes and occasionally N/V. She states CP will occur during exertion as well as resting and all other episodes have subsided in several minutes,this time pain continued. [facility] History I have reviewed the patient's past medical history: Yes Medical History: Reports:: Depression, Gastroesophageal Reflux Disease(GERD), Hyperlipidemia, Hypertension, Migraine Denies:: Cancer, Diabetes Mellitus Type 1, Diabetes Mellitus Type 2, Internal Pacemaker, MRSA, Seizures *Have you ever received a pneumonia vaccine?: No *Have you received a flu vaccine this season?: No Other Medical History: Reports: Arthritis, Other. Denies: Blood Transfusion Reaction Other Surgeries: Yes: Appendectomy, Colonoscopy, , Dilation and Curettage, Hysterectomy-Total, Hysterectomy-Partial, Other (uterine ablation). No: Pacemaker Amputation: No Fractures: No - *Social History Smoking Status: Current every day smoker Tobacco Type: cigarettes # Packs/Day (cigarettes): 1 Alcohol Intake: never Alcohol Intake Frequency:: other Substance Use Type: opiates *Occupational Status:: unemployed Housing: house Household Members: spouse *Travel in the last 8 weeks: None - Psychiatric History Pschychiatric History:: Reports:: Depression Family Hx:: Cancer, Hypertension Review of Systems - Review of Systems Review of systems:: pertinent systems reviewed and negative unless documented below - Constitutional Reports excessive sweating, Reports headache(s), Denies body ache(s), Denies chills - Eyes Denies blind spots, Denies loss of vision - ENT Denies bleeding gums, Denies ear pain - *Cardiovascular Reports chest pain, Reports chest pain at rest, Reports chest pain with activity, Reports excessive sweating, Reports shortness of breath, Reports shortness of breath with activity, Denies leg swelling - *Respiratory Reports shortness of breath, Reports shortness of breath with activity, Denies change in phlegm color - *Gastrointestinal Denies abdominal pain, Denies change in bowel habits - *Musculoskeletal Denies joint pain, Denies back pain - Integumentary/Breasts Denies hair loss, Denies non-healing lesions - *Neurologic Reports headache(s), Denies dizziness, Denies localized weakness, Denies sensory deficit - Psychiatric Denies abnormal sleep pattern, Denies hearing things others do not hear - Endocrine Denies cold intolerance, Denies heat intolerance - Hematologic/Lymphatic Denies easy bleeding, Denies enlarged lymph nodes - Allergic/Immunologic Denies GI upset with certain foods, Denies wheezing Exam Vital signs and Labs for Last 24 Hours: Temp Pulse Resp BP Pulse Ox 97.8 F 70 18 127/79 96 01/24/21 14:00 01/24/21 15:06 01/24/21 15:05 01/24/21 15:05 01/24/21 15:05 Laboratory Results - last 24 hr 01/23/21 21:50: WBC 11.5 H, RBC 4.30, Hgb 13.0, Hct 38.7, MCV 90.0, MCH 30.2, MCHC 33.6, RDW 13.2, Plt Count 264, MPV 8.2, Neut % (Auto) 65.7, Lymph % (Auto) 26.3, [place] % (Auto) 3.5, Eos % (Auto) 4.0, Baso % (Auto) 0.5, Neut # (Auto) 7.6, Lymph # (Auto) 3.0, [place] # (Auto) 0.4, Eos # (Auto) 0.5 H, Baso # (Auto) 0.1, ESR 18 01/23/21 21:50: Sodium 138, Potassium 3.2 L, Chloride 106, Carbon Dioxide 26, Anion Gap 9.2, BUN 15, Creatinine 1.00, Estimated Creat Clear 94, Estimated GFR 59, Est GFR ( Amer) 72, Gluco
== END 2021-01-24 14:04 ==
LOC: ER 23:17 → 2ND 01-24 09:00 → CATHLAB 01-26 07:55
PROVIDERS: Emergency Provider Emergency Medicine; PCP Emergency Medicine; Visit Provider Internal Medicine
DX: I20.0 Unstable angina (principal); R07.9 Chest pain, unspecified; I10 Essential (primary) hypertension; Z88.0 Allergy status to penicillin; Z88.5 Allergy status to narcotic agent; Z88.8 Allergy status to other drugs, medicaments and biological substances; Z79.899 Other long term (current) drug therapy; Z72.0 Tobacco use; Z82.49 Family history of ischemic heart disease and other diseases of the circulatory system
CPT/HCPCS: 71046; 80048; 80061; 83735; 84145; 84484; 85025; 85651; 86140; 93005; 93306; 93458; 96374; 99152; 99284; C1725; C1769; J1644; J2405; Q9967; U0003

== ENCOUNTER → 2021-01-27 08:02 | Outpatient (CLI) | payer MEDICAID, SELFPAY ==
--- NOTE | 2021-01-27 08:02 | MM_ITS ---
PROCEDURE: MM DIG SCREENING MAMM BI W/CAD Digital Breast Tomosynthesis Included CLINICAL INDICATION: screening There is a history of breast cancer patient's paternal grandmother and maternal grandmother. Patient complains of soreness and fullness left axillary region COMPARISON: No exams were available for comparison TECHNIQUE: Standard CC and MLO images and 3D Tomosynthesis was obtained. R2 CAD reviewed. FINDINGS: Moderate diffuse fibroglandular densities are seen throughout both breasts. There are few scattered benign-appearing microcalcifications in each breast. There is a small benign-appearing nodular density just deep to the nipple right breast a 2nd lesion deep within the right breast only definitely seen on the CC projection and likely a collection of small cysts. Recommend the patient return for ultrasound exam right breast. There is a low-lying node near the axillary tail right breast. IMPRESSION: Moderate breast density with nodular lesions right breast in with no previous films available for comparison BI-RAD Category: 0 Need Additional Imaging Evaluation FOLLOW-UP: IMM Immediate Follow-up Recommended (A letter has been sent to the patient regarding results of the study.) Dictated by: Dr. Randall Hill MD 01/31/2021 10:23 Dr. Randall Hill MD in [place] 01/31/2021 10:23
== END ==
PROVIDERS: PCP Emergency Medicine; Visit Provider Emergency Medicine
DX: Z12.31 Encounter for screening mammogram for malignant neoplasm of breast (principal)
CPT/HCPCS: 77063; 77067

== ENCOUNTER → 2021-02-02 11:18 | Outpatient (CLI) | payer MEDICAID, SELFPAY ==
[2021-02-02 12:45] LABS: Chloride 104 mmol/L (98-107); Potassium 4.1 mmoL/L (3.5-5.1); Sodium 140 mmol/L (136-145)
[2021-02-02 12:48] LABS: Anion Gap 12.1 mEq/L (5-15); Blood Urea Nitrogen 15 mg/dl (7-17); Calcium 10.5 mg/dl (8.4-10.2); Carbon Dioxide 28 mmol/L (22.0-30.0); Estimated Glomerular Filt Rate 48 ml/min (>60); GFR (African American) 58 ML/MIN (>60); Glucose 115 mg/dl (74-100)
== END ==
PROVIDERS: Visit Provider Internal Medicine Cardiovascular Disease
DX: R07.9 Chest pain, unspecified (principal)
CPT/HCPCS: 36415; 80048

== ENCOUNTER → 2021-02-10 14:17 | Outpatient (CLI) | payer MEDICAID, SELFPAY ==
--- NOTE | 2021-02-10 14:17 | US_ITS ---
PROCEDURE: US BREAST RT COMPLETE CLINICAL INDICATION: abn mamm COMPARISON: No exams were available for comparison FINDINGS: Focal hypoechoic lesion is noted at 1 o'clock position in the retroareolar region measuring 0.4 x 0.3 centimeters. 2nd focal hypoechoic/anechoic lesion noted without evidence of vascularity at 7 o'clock position measuring 0.8 centimeters. Right axillary live normal morphology lymph nodes are noted. IMPRESSION: Probably benign findings. Please see diagnostic mammogram report of the same date for further recommendations. Dictated by: Jonelle Dutton 02/10/2021 17:28 Jonelle Dutton in [facility] 02/10/2021 17:28
--- NOTE | 2021-02-10 15:17 | MM_ITS ---
PROCEDURE: MM DIG MAMM DX UNILAT RT CAD Digital Breast Tomosynthesis Included CLINICAL INDICATION: ABNORMAL SCREENING COMPARISON: MG MM DIG SCREENING MAMM BI W/CAD from 01/27/2021 US US BREAST RT COMPLETE from 02/10/2021 TECHNIQUE: Standard CC and MLO images and 3D Tomosynthesis was obtained. R2 CAD reviewed. FINDINGS: Persistence of the nodular density is noted on the spot compression images. This corresponds to the focal anechoic lesion in the retroareolar region at 1 o'clock position measuring 0.4 centimeters. The 2nd lesion at noted on the prior mammogram demonstrates no significant dominant lesions on the spot compression images. The ultrasound demonstrates focal anechoic lesion at 7 o'clock position measuring 0.8 x 0.4 centimeters. IMPRESSION: Probably benign finding. BI-RAD Category: 3 Probably Benign Finding Short Term Follow-up FOLLOW-UP: 6M 6Month Follow-up with diagnostic mammogram and ultrasound. (A letter has been sent to the patient regarding results of the study.) Dictated by: Jonelle Dutton 02/10/2021 17:27 Jonelle Dutton in [facility] 02/10/2021 17:27
== END ==
PROVIDERS: PCP Emergency Medicine; Visit Provider Emergency Medicine
DX: R92.8 Other abnormal and inconclusive findings on diagnostic imaging of breast (principal)
CPT/HCPCS: 76641; 77061; 77065; G0279

== ENCOUNTER → 2021-02-17 12:00 | Outpatient (CLI) | payer MEDICAID, SELFPAY ==
[2021-02-17 13:41] LABS: Coronavirus 19 IgG Antibody Negative (Negative); Coronavirus 19 IgM Antibody Negative (Negative)
== END ==
PROVIDERS: Visit Provider Specialist
DX: Z01.818 Encounter for other preprocedural examination (principal); Z20.822 Contact with and (suspected) exposure to COVID-19
CPT/HCPCS: 36415; 86328

== ENCOUNTER → 2021-02-20 19:53 | Outpatient (CLI) | payer MEDICAID, SELFPAY | PROVIDERS: PCP Emergency Medicine; Visit Provider Internal Medicine Cardiovascular Disease | DX: G47.33 Obstructive sleep apnea (adult) (pediatric) (principal); I10 Essential (primary) hypertension; R40.0 Somnolence; R06.83 Snoring | CPT/HCPCS: 95810 ==

== ENCOUNTER → 2021-08-01 14:02 | Outpatient (CLI) | payer MEDICAID, SELFPAY ==
--- NOTE | 2021-08-01 14:02 | MM_ITS ---
PROCEDURE: MM DIG MAMM DX UNILAT RT CAD Digital Breast Tomosynthesis Included RIGHT BREAST ULTRASOUND COMPLETE CLINICAL INDICATION: 6 mth f/u Follow-up nodule COMPARISON: MG MM DIG SCREENING MAMM BI W/CAD from 01/27/2021 MG MM DIG MAMM DX UNILAT RT CAD from 02/10/2021 US US BREAST RT COMPLETE from 02/10/2021 US US BREAST RT COMPLETE from 08/01/2021 TECHNIQUE: Spot-compression views and standard views with tomography along with right breast ultrasound FINDINGS: There are scattered areas of fibroglandular density. Persistent benign-appearing nodule at the 1 o'clock position of the right breast in the anterior 1/3 of the breast 8 x 6 mm corresponding to the anechoic nodule as seen on the right breast ultrasound not significantly change suggesting a small cyst. Right breast ultrasound: 7 x 4 mm cyst in the 1 o'clock region of the right breast near the nipple not significantly changed. At 11 o'clock there is a 6 x 2 x 6 mm complicated cyst. At 7 o'clock there is a 5 x 2 mm cyst. No suspicious nodules evident. Mildly prominent axillary nodes measuring up to 2 x 0.7 cm. IMPRESSION: No change. Benign findings. No evidence of malignancy. BI-RAD Category: 2 Benign Finding FOLLOW-UP: 6M 6 Month Follow-up Recommend return to bilateral screening mammogram in January of 2022. (A letter has been sent to the patient regarding results of the study.) Dictated by: Emery Hope MD 08/09/2021 10:22 Emery Hope MD in [facility] 08/09/2021 10:22
== END ==
PROVIDERS: PCP Emergency Medicine; Visit Provider Emergency Medicine
DX: R92.8 Other abnormal and inconclusive findings on diagnostic imaging of breast (principal)
CPT/HCPCS: 76641; 77061; 77065; G0279

== ENCOUNTER → 2021-11-09 11:28 | Outpatient (POV) | payer MEDICAID, SELFPAY ==
[2021-11-09 11:49] VITALS: BP 111/74; PULSE 82; RESP 18; O2SAT 97; BMI 27.6
--- NOTE | 2021-11-09 12:15 | HMH.PMCON ---
Assessment and Plan (1) Low back pain Status: Acute Category: Medical Code(s): M54.50 - Low back pain, unspecified (2) Bilateral sacroiliitis Status: Acute Category: Medical Code(s): M46.1 - Sacroiliitis, not elsewhere classified - Assessment and plan all Dx Assessment and Plan for all problems:: Patient is very tender to palpation to bilateral SI joints today. The pain is radiating into her bilateral groin, bilateral buttock, and bilateral lower extremities. She has had this pain similar in nature in the past and did undergo bilateral SI joint injections getting 100% relief. She is continuing with home stretching. She has been advised to stop taking ibuprofen and we will start the patient on diclofenac 75 mg 1 tablet p.o. twice daily. We will see if this helps with the patient's pain. She is not having any changes in bowel or bladder and is not having any paresthesia. We will follow up with her after the bilateral SI joint injections and will reassess her symptoms at that time. She is not diabetic. Possible side effects of corticosteroids have been discussed with the patient. Risks and benefits of the procedure have been explained to the patient. Patient would like to proceed with the procedure. Patient has been instructed to contact the clinic with any concerns before the next appointment. Dr. Patiño has reviewed this note and agrees with this plan of care. This note was dictated using voice recognition software and make contain errors or omissions. HPI - Data of Consult Patient: new to practice Requesting Physician: Umm Mcclure APRN - Consult Narrative Reason for consult: Low back pain History of present illness: Ms. Rosario is a 46 year old female who presents today for consultation for new onset low back pain. She says that the pain developed approximately 2 weeks ago and has progressively worsened. She is having pain to bilateral low back area with radiation into bilateral buttock, groin and legs. Upon sitting, the patient's pain is to her anterior thigh area. She does report when lying down, the pain is in the posterior aspect of bilateral lower extremities. She says that sitting longer than 30 minutes causes pain to worsen and she does have to reposition or stand and walk to lessen pain. Prolonged standing and walking, however, do worsen the pain. Stretching has given her significant relief. She has had bilateral SI joint injections in the past and got up to 100% relief until recently. She has been taking ibuprofen which is given minimal relief. Patient has been seen in our clinic in the past for occipital nerve blocks. At that time, she says that she did pass out following the injection. Patient does report to have left leg being shorter than the right leg. She says this does cause her pelvis to be misaligned. Today, the patient is rating her pain a 6 out of 10. She is taking ibuprofen at this time. CC: Umm Mcclure APRN [facility] History I have reviewed the patient's past medical history: Yes Medical History: Reports:: Depression, Gastroesophageal Reflux Disease(GERD), Hyperlipidemia, Hypertension, Migraine Denies:: Cancer, Diabetes Mellitus Type 1, Diabetes Mellitus Type 2, Internal Pacemaker, MRSA, Seizures *Have you ever received a pneumonia vaccine?: No *Have you received a flu vaccine this season?: No Other Medical History: Reports: Arthritis, Other. Denies: Blood Transfusion Reaction Other Surgeries: Yes: Appendectomy, Cardiac Catheterization, Colonoscopy, , Dilation and Curettage, Hysterectomy-Total, Hysterectomy-Partial, Other (uterine ablation). No: Pacemaker Amputation: No Fractures: No - *Social History Smoking Status: Current every day smoker Tobacco Type: cigarettes # Packs/Day (cigarettes): 1 Alcohol Intake: never Alcohol Intake Frequency:: other Substance Use Type: opiates *Occupational Status:: unemployed Housing: house Household Members: spouse *Travel in the last
== END ==
PROVIDERS: Visit Provider Clinical Nurse Specialist Family Health
DX: M54.50 Low back pain, unspecified (principal); M46.1 Sacroiliitis, not elsewhere classified
CPT/HCPCS: 99202; G0463

== ENCOUNTER 2021-11-24 10:32 | Day surgery (SDC) | payer MEDICAID, SELFPAY ==
[2021-11-24 10:45] VITALS: BP 113/77; PULSE 82; RESP 20; TEMP 36.4; O2SAT 100; BMI 27.6
[2021-11-24 12:05] VITALS: BP 110/87; PULSE 71; RESP 18; O2SAT 98
[2021-11-24 12:06] VITALS: BP 119/88; PULSE 77; RESP 18; O2SAT 98
[2021-11-24 12:12] VITALS: BP 108/72; PULSE 85; RESP 20; O2SAT 99
--- NOTE | 2021-11-24 12:23 | P.PCN_ITS ---
- Procedure Date: 11/24/21 Time: 12:23 Anesthesiologist:: Lillian Mendoza MD Complications:: None Pre-procedure Diagnosis:: Bilateral sacroiliitis, bilateral hip pain, chronic low back pain Post-procedure Diagnosis:: Same Indications for Procedure:: This patient is a very pleasant 46-year-old white female who presents today with chronic low back pain and bilateral hip pain related to the above diagnosis. She has trialed and failed conservative treatment including oral pain medications and home stretching program for greater than 6 weeks. She has previously undergone bilateral SI joint injections and notes 100% pain relief for approximately 1 month but she states that the pain has since returned and is requesting a repeat injection. She states that she typically only receives up to 1 month of pain relief with these injections. The plan for today is for the patient to undergo PT bilateral SI joint injections under fluoroscopy. Procedure Details:: B/L SI joint injection under fluoroscopy Informed consent was obtained and the risks and benefits of the procedure was explained to the patient. The patient was taken to the procedure room and flores janet prone on the procedure table. The patient was prepped using ChloraPrep. The skin and subcutaneous tissues overlying the SI joints were anesthetized using lidocaine. I placed a 22-gauge needle first in the left SI joint and second in the right SI joint. Needle placement was confirmed with dye. After this we injected 5 mL bupivacaine 0.25% and Depo-Medrol 40 mg into each SI joint. Patient tolerated the procedure well with no complication. Plan and Disposition:: We will follow-up with this patient in 2 weeks. Will reevaluate pain symptoms at that time. I discussed with the patient that she may benefit from SI joint stabilization in the future with a omnia system for longer lasting pain relief. I discussed with her that we will start with the right side since that is the more painful joint.
== END 2021-11-24 12:12 | disposition home or self-care (01) ==
LOC: SC.PAINP 10:33
PROVIDERS: PCP Emergency Medicine; Visit Provider Anesthesiology Pain Medicine
DX: M46.1 Sacroiliitis, not elsewhere classified (principal); M54.50 Low back pain, unspecified; G89.29 Other chronic pain; E78.5 Hyperlipidemia, unspecified; I10 Essential (primary) hypertension; K21.9 Gastro-esophageal reflux disease without esophagitis; Z72.0 Tobacco use; Z88.5 Allergy status to narcotic agent; Z88.0 Allergy status to penicillin; Z88.8 Allergy status to other drugs, medicaments and biological substances
CPT/HCPCS: 27096; G0260; J1040; Q9966

== ENCOUNTER → 2021-11-28 13:02 | Outpatient (POV) | payer MEDICAID, SELFPAY ==
[2021-11-28 13:42] VITALS: BP 127/77; PULSE 88; RESP 18; O2SAT 97; BMI 27.6
--- NOTE | 2021-11-28 14:38 | HMH.PAINSOAP ---
[facility] Pain Management SOAP Note Subjective:: Patient is a 46-year-old female who presents today for follow-up. She was seen on 11/24/2021 and did undergo bilateral SI joint injections at that time. She is here today with complaints of worsening pain since the injection. The patient rates her pain a 9 out of 10. She is now having new onset bladder incontinence along with severe numbness in her groin and vaginal area as well as numbness and tingling down bilateral lower extremities. She is also having severe pain into her low back and legs. This has been made worse since her injection on 11/24/2021. She says she is unable to stand walk or sit for prolonged periods. The patient says that the pain seems to be at its worse when sitting on the toilet and with any movement. She has not had any recent imaging of her lumbar spine. She does deny any bowel incontinence. Patient also says that her has reported her to have twitching sensation while sleeping along with uncontrolled movements and bladder incontinence. She does states she has concerns that she is having seizure activity while asleep. She says that the has not tried to awaken her when the episodes occur. Upon awakening she says she does not recall anything. She does report to be unaware with bladder incontinence when it occurs. Objective:: Review of Systems General: No recent weight changes, no fever, no sleep disturbances Respiratory: No cough, no shortness of air, no recurring pulmonary infections Cardiovascular/peripheral vascular: No chest pain, no palpitations, no edema, no shortness of breath Gastrointestinal: No new onset incontinence, normal bowel movements reported Genitourinary: No new onset incontinence Musculoskeletal: Low back pain with radiation into bilateral lower extremities with numbness and tingling into bilateral lower extremities, vaginal area, and groin area Psychiatric: [Normal mood/affect] Neurological: [Denies weakness in extremities], [denies balance issues] Assessment:: Physical exam General: Alert and oriented x3, no acute distress, pleasant and cooperative Lungs: Respirations even and unlabored, symmetrical chest expansion Eyes: PERRL Musculoskeletal: Flexion and extension of lumbar [spine] somewhat guarded secondary to pain, [antalgic gait noted] Neurological: Speech clear, no gross sensory deficit Plan:: We will schedule the patient for an MRI lumbar spine. She has requested a neurology consult for questionable new onset seizures. We will also order the patient prednisone 20 mg 1 tablet p.o. 2 times daily for 5 days. We will see her back in the clinic after MRI for further evaluation. Patient has been instructed to contact the clinic with any concerns before the next appointment. Dr. Patiño has reviewed this note and agrees with this plan of care. This note was dictated using voice recognition software and make contain errors or omissions. [facility] History I have reviewed the patient's past medical history: Yes Medical History: Reports:: Depression, Gastroesophageal Reflux Disease(GERD), Hyperlipidemia, Hypertension, Migraine Denies:: Cancer, Diabetes Mellitus Type 1, Diabetes Mellitus Type 2, Internal Pacemaker, MRSA, Seizures *Have you ever received a pneumonia vaccine?: No *Have you received a flu vaccine this season?: No Other Medical History: Reports: Arthritis, Other. Denies: Blood Transfusion Reaction Other Surgeries: Yes: Appendectomy, Cardiac Catheterization, Colonoscopy, , Dilation and Curettage, Hysterectomy-Total, Hysterectomy-Partial, Other (uterine ablation). No: Pacemaker Amputation: No Fractures: No - *Social History Smoking Status: Current every day smoker Tobacco Type: cigarettes # Packs/Day (cigarettes): 1 Alcohol Intake: never Alcohol Intake Frequency:: other Substance Use Type: opiates *Occupational Status:: unemployed Housing: house Household Members: spouse *Travel in the last
== END ==
PROVIDERS: Visit Provider Clinical Nurse Specialist Family Health
DX: M54.50 Low back pain, unspecified (principal); M46.1 Sacroiliitis, not elsewhere classified
CPT/HCPCS: 99212; G0463

== ENCOUNTER → 2021-11-30 09:39 | Outpatient (CLI) | payer MEDICAID, SELFPAY ==
--- NOTE | 2021-11-30 09:41 | MR_ITS ---
FINAL REPORT CLINICAL HISTORY: BACK PAIN, bilateral leg numbness/tingling, urinary incontinence. FINDINGS: Multiplanar MR imaging of the lumbar spine was performed without contrast. On the sagittal T2-weighted images, disc degeneration is seen at multiple levels. There is a hemangioma of the L3 vertebral body. The vertebral alignment is normal. There is no evidence of fracture. The conus has an unremarkable appearance. No significant canal stenosis is identified. L1-2: No significant central canal stenosis or neuroforaminal narrowing. L2-3: No significant central canal stenosis or neuroforaminal narrowing. L3-4: No significant central canal stenosis or neuroforaminal narrowing. L4-5: An annular bulge and facet arthropathy are present. There is a small left foraminal disc protrusion with mild bilateral neural foraminal narrowing. L5-S1: Facet arthropathy is present. There is bone marrow edema in the bilateral L5 pedicles, likely reactive. T here is spurring of the left sacroiliac joint. IMPRESSION: Left foraminal disc protrusion at L4-5 with mild bilateral neural foraminal narrowing. Degenerative disc disease as above. Reviewed, Interpreted and Dictated by Lizandro Busch III, MD Transcribed by Jennifer Escalante Authenticated by Lizandro Busch III, MD on 11/30/2021 11:00:39 AM [facility]
== END ==
PROVIDERS: PCP Emergency Medicine; Visit Provider Clinical Nurse Specialist Family Health
DX: M54.50 Low back pain, unspecified (principal)
CPT/HCPCS: 72148; 76376

== ENCOUNTER → 2021-12-11 11:50 | Outpatient (POV) | payer MEDICAID, SELFPAY ==
[2021-12-11 11:57] VITALS: BP 130/92; PULSE 92; RESP 18; O2SAT 97; BMI 27.7
--- NOTE | 2021-12-11 13:03 | HMH.PAINSOAP ---
[facility] Pain Management SOAP Note Subjective:: Patient is a pleasant 46-year-old female who comes in here today for follow-up. Patient is currently being treated for low back pain, bilateral sacroiliitis. On 11/24/2021, patient underwent a bilateral SI injections. This is the patient's second SI injection. Patient says that her first 1 lasted for about a year however the second 1 only lasted for a few days. Then, patient's says that he has been noticing that she has been having twitching sensation when she was sleeping. Additionally, he was also having bladder incontinence. Patient says that she has some concerns that she might be having any seizure activity while she was asleep. We referred the patient to neurology, Dr. Hopper. Dr. Hopper ordered a brain scan for the patient. Patient says that the only thing that has helped her low back pain and sleep was tramadol. When we last saw this patient, we told her that we want to hold off in prescribing tramadol because of her seizure activity. Patient endorses in taking her 's tramadol prescription in the last few days which provided her two days of good sleep. Patient also said that when she stopped taking her clonazepam two weeks ago, her twitching and seizure activity has resolved. I discussed with the patient that we will wait for the results of the brain scan to see if she's cleared of any seizure activity. She rates her pain today as 6/10. Her [place] number is [id number], MEQ 0, appropriate. Review of Systems General: No recent weight changes, no fever, no sleep disturbances Respiratory: No cough, no shortness of air, no recurring pulmonary infections Cardiovascular/peripheral vascular: No chest pain, no palpitations, no edema, no shortness of breath Gastrointestinal: No new onset incontinence, normal bowel movements reported Genitourinary: No new onset incontinence Musculoskeletal: Low back pain, bilateral hip pain Psychiatric: [Normal mood/affect] Neurological: [Denies weakness in extremities], [denies balance issues] Objective:: Physical exam General: Alert and oriented x3, no acute distress, pleasant and cooperative Lungs: Respirations even and unlabored, symmetrical chest expansion Eyes: PERRL Musculoskeletal: Flexion and extension of lumbar [spine] somewhat guarded secondary to pain; bilateral hips are positive for melissa, reyes's compression, and distraction. Neurological: Speech clear, no gross sensory deficit Assessment:: Degenerative disc disease of lumbar spine Bilateral sacroiliitis Plan:: Patient says that she had better sleep after taking her 's tramadol. I discussed with the patient that we will wait for the results of her brain scans before we decide if we want to start the patient on tramadol. Patient is still complaining of low back pain, bilateral hip pain. Patient has positive Melissa, Reyes's, compression, and distraction. We will schedule the patient for another bilateral SI injections. Risk and benefits have been discussed with the patient and she would like to proceed with this procedure. We will also start the patient on compounding cream with no gabapentin. We would like to see the patient back after her SI injections. Patient has been instructed to contact the clinic with any concerns before the next appointment. Dr. Patiño has reviewed this note and agrees with this plan of care. This note was dictated using voice recognition software and make contain errors or omissions. [facility] History Medical History: Reports:: Depression, Gastroesophageal Reflux Disease(GERD), Hyperlipidemia, Hypertension, Migraine Denies:: Cancer, Diabetes Mellitus Type 1, Diabetes Mellitus Type 2, Internal Pacemaker, MRSA, Seizures *Have you ever received a pneumonia vaccine?: No *Have you received a flu vaccine this season?: No Other Medical History: Reports: Arthritis, Fibromyalgia, Other. Denies: Blood Transfusion Reaction Other Surgeries: Yes
== END ==
PROVIDERS: Visit Provider Clinical Nurse Specialist Family Health
DX: M51.36 Other intervertebral disc degeneration, lumbar region (principal); M46.1 Sacroiliitis, not elsewhere classified
CPT/HCPCS: 99212; G0463

== ENCOUNTER → 2021-12-21 09:37 | Outpatient (CLI) | payer MEDICAID, SELFPAY | PROVIDERS: PCP Emergency Medicine; Visit Provider Specialist | DX: R41.9 Unspecified symptoms and signs involving cognitive functions and awareness (principal); G47.30 Sleep apnea, unspecified | CPT/HCPCS: 95816; 95819 ==

== ENCOUNTER → 2022-01-29 09:52 | Outpatient (CLI) | payer MEDICAID, SELFPAY ==
--- NOTE | 2022-01-29 09:53 | MM_ITS ---
PROCEDURE INFORMATION: Exam: MG Bilateral Screening 3D Mammography Exam date and time: 01/29/2022 10:07 AM Age: 47 years old Clinical indication: Encounter for screening mammogram for malignant neoplasm of breast TECHNIQUE: Imaging protocol: Bilateral Screening tomosynthesis and 2D mammography including computer-aided detection (CAD) when performed. COMPARISON: 1. MG MM DIG MAMM DX UNILAT RT CAD 08/01/2021 2:06 PM 2. MG MM DIG MAMM DX UNILAT RT CAD 02/10/2021 3:15 PM FINDINGS: MAMMOGRAPHY: Breast composition: The breast tissue is composed of scattered areas of fibroglandular density. Mass: None. Architectural distortion: None. Calcifications: No suspicious calcifications. Asymmetric density: None. Skin thickening: None. Axillary adenopathy: None. IMPRESSION: No mammographic evidence of malignancy. Annual screening is recommended unless otherwise clinically indicated. ASSESSMENT: BI-RADS Category 1: Negative
== END ==
PROVIDERS: PCP Emergency Medicine; Visit Provider Emergency Medicine
DX: Z12.31 Encounter for screening mammogram for malignant neoplasm of breast (principal)
CPT/HCPCS: 77063; 77067

== ENCOUNTER → 2022-02-02 16:00 | Outpatient (CLI) | payer MEDICAID, SELFPAY ==
[2022-02-02 14:23] LABS: Basophils # 0.1 K/mm3 (0-0.2); Basophils % 0.8 % (0.1-2.0); Eosinophils # 0.3 K/mm3 (0.0-0.4); Eosinophils % 2.7 % (0.1-12.0); Hematocrit 42.5 % (37.0-47.0); Hemoglobin 13.7 g/dL (12.2-16.2); Lymphocytes # 2.8 K/mm3 (0.7-4.5); Lymphocytes % 24.6 % (10-50); Mean Corpuscular HGB Conc 32.2 g/dL (31.8-35.4); Mean Corpuscular Hemoglobin 32.1 pg (27.0-31.2); Mean Corpuscular Volume 99.7 fl (81-99); Mean Platelet Volume 10.1 fl (7.4-10.4); Monocytes # 0.5 K/mm3 (0.1-1.0); Neutrophils # 7.8 K/mm3 (1.8-7.8); Neutrophils % 67.9 % (37.0-80.0); Platelet Count 319 K/mm3 (142-424); Red Blood Count 4.26 M/mm3 (4.20-5.40); Red Cell Distribution Width 14.3 % (11.5-17.5); White Blood Count 11.5 K/mm3 (4.8-10.8)
[2022-02-02 15:20] LABS: Hemoglobin A1C 5.6 % (4.0-6.0)
[2022-02-02 15:40] LABS: Chloride 105 mmol/L (98-107); Potassium 3.8 mmoL/L (3.5-5.1); Sodium 139 mmol/L (136-145)
[2022-02-02 15:43] LABS: Albumin Level 4.1 g/dl (3.5-5.0); Albumin/Globulin Ratio 1.8 (1.1-1.8); Anion Gap 11.8 mEq/L (5-15); Calcium 9.1 mg/dl (8.4-10.2); Carbon Dioxide 26 mmol/L (22.0-30.0); Cholesterol 187 mg/dl (140-200); Globulin 2.3 g/dL (1.3-3.2); Glucose 92 mg/dl (74-100); Total Protein,Serum 6.4 g/dl (6.3-8.2); Triglycerides 208 mg/dl (30-150); VLDL Cholesterol 42 mg/dL (0-40)
[2022-02-02 15:44] LABS: Chol/HDL Ratio 3.9 (1-3.5); HDL Cholesterol 48 mg/dl (40-60)
[2022-02-02 15:55] LABS: Direct LDL Cholesterol 96.87 mg/dL (100-129)
[2022-02-02 16:02] LABS: 25-OH Vitamin D, Total 38.2 ng/mL (30-100); T4 (Thyroxine) 7.2 ug/dl (5.53-11.0)
[2022-02-02 16:35] LABS: Alanine Aminotransferase 25 U/L (12-78); Aspartate Amino Transferase 25 U/L (14-36); Blood Urea Nitrogen 19 mg/dl (7-17); Estimated Glomerular Filt Rate 53 ml/min (>60); GFR (African American) 64 ML/MIN (>60)
[2022-02-02 16:36] LABS: Alkaline Phosphatase 114 U/L (38-126); Bilirubin,Total 0.4 mg/dl (0.2-1.3)
[2022-02-02 17:07] LABS: Thyroid Stimulating Hormone 3.57 uIU/mL (0.465-4.68)
== END ==
PROVIDERS: Visit Provider Emergency Medicine
DX: I10 Essential (primary) hypertension (principal); E78.5 Hyperlipidemia, unspecified; E55.9 Vitamin D deficiency, unspecified; F32.9 Major depressive disorder, single episode, unspecified; N32.81 Overactive bladder; R63.5 Abnormal weight gain
CPT/HCPCS: 80053; 80061; 82306; 83036; 84436; 84443; 85025

== ENCOUNTER 2022-04-13 09:54 | Emergency (ER) | payer MEDICAID, SELFPAY ==
[2022-04-13 09:55] VITALS: BP 135/92; PULSE 62; RESP 16; TEMP 36.7; O2SAT 100; BMI 28.8
[2022-04-13 10:02] VITALS: BP 135/92; PULSE 65; O2SAT 100
--- NOTE | 2022-04-13 10:10 | HMH.EDGENADL ---
ED Disposition Clinical Impression: Viral gastroenteritis, Dehydration Disposition: Home, Self-Care Condition on Discharge: Good Instructions: DI for Viral Gastroenteritis -- Adult, DI for Dehydration -- Adult Additional Instructions: Zofran as needed for nausea and vomiting. Drink plenty of fluids. Follow-up with primary care provider next week if not improving. Prescriptions: Ondansetron [Zofran 4mg ODT] 4 mg PO TIDP PRN #10 tab PRN Reason: Nausea And Vomiting Transmission Status: Pending to [facility] Referrals: Uli Ernandez MD [Primary Care Provider] - - Critical Care Critical Care Time: No Attestation: On 04/13/22, the high probability of a clinically significant, sudden or life threatening deterioration of the following system(s) required my full and direct attention, intervention and personal management. The time I documented below is in addition to time spent performing reported procedures but includes the following listed in this critical care notation. Medical Decision Making - Indra Inquiry Pt receiving controlled substance: No Vital Signs: 04/13/22 09:55 04/13/22 10:02 04/13/22 10:30 Temperature 98.1 F Temperature Source Oral Pulse Rate 65 65 Pulse Rate [Right Radial] 62 Respiratory Rate 16 Blood Pressure 135/92 H 120/89 Blood Pressure [Right Arm] 135/92 H Blood Pressure Mean 108 99 Blood Pressure Mean [Right Arm] 106 Blood Pressure Source [Right Arm] Automatic Cuff Blood Pressure Position [Right Arm] Sitting 02 Sat by Pulse Oximetry 100 100 100 Oxygen Delivery Method Room Air - Lab Data Lab Results 04/13/22 10:09: SARS-CoV-2 (PCR) Not detected, Influenza A Untype (PCR) Not detected, Influenza Type B (PCR) Not detected 04/13/22 10:15: WBC 8.7, RBC 4.69, Hgb 14.8, Hct 45.3, MCV 96.8, MCH 31.5 H, MCHC 32.6, RDW 14.0, Plt Count 312, MPV 9.3, Neut % (Auto) 65.7, Lymph % (Auto) 22.6, [place] % (Auto) 3.0, Eos % (Auto) 6.1, Baso % (Auto) 2.7 H, Neut # (Auto) 5.7, Lymph # (Auto) 2.0, [place] # (Auto) 0.3, Eos # (Auto) 0.5 H, Baso # (Auto) 0.2 04/13/22 10:15: Sodium 139, Potassium 3.1 L, Chloride 103, Carbon Dioxide 28, Anion Gap 11.1, BUN 10, Creatinine 1.10 H, Estimated Creat Clear 86, Estimated GFR 53 L, Est GFR ( Amer) 64, Glucose 169 H, Calcium 9.4, Total Bilirubin 0.5, AST 37 H, ALT 41, Alkaline Phosphatase 90, Total Protein 7.0, Albumin 4.4, Globulin 2.6, Albumin/Globulin Ratio 1.7 Result diagrams: 04/13/22 10:15 04/13/22 10:15 Orders (Tests/Meds): ED MEDICATIONS Discontinued Medications Generic Name Dose Route Start Last Admin Trade Name Freq PRN Reason Stop Dose Admin Ondansetron HCl 4 mg 04/13/22 10:10 04/13/22 10:22 Ondansetron 4mg/2ml Vial IV 04/13/22 10:11 4 mg ONCE ONE Administration Potassium Chloride 40 meq 04/13/22 11:03 04/13/22 11:05 Potassium Chloride 20meq Tab PO 04/13/22 11:04 40 meq ONCE ONE Administration Sodium Chloride 1,000 ml 04/13/22 10:10 04/13/22 10:22 Sodium Chloride 0.9% 1000ml Bag IV 04/13/22 10:11 1,000 ml BOLUS ONE Administration General Adult HPI - General Stated complaint: sore throat, loss of voice, vomiting Time Seen by Provider: 04/13/22 10:00 - History of Present Illness HPI narrative: States she has been sick for 5 days. Initially had vomiting and diarrhea, low-grade fever. Diarrhea and fever have resolved, but still has vomiting whenever she eats. She last vomited about 2 AM. Denies any pain. She has a hoarse voice, she says she thinks she lost her voice from vomiting. Her throat is not sore. No rhinorrhea, no significant cough. She feels like she is dehydrated, mouth is dry. She would like to be tested for COVID. - Related Data Home Medications Medication Instructions Recorded Confirmed ibuprofen 800 mg tablet 800 mg PO TID PRN 09/14/21 03/25/22 Fluticasone Furoate [Flonase See Rx Instructions .ROUTE .COMPLEX 11/24/21 03
[2022-04-13 10:25] LABS: Coronavirus 19, PCR Not Detected (NotDetected); Influenza A, PCR Not Detected (NotDetected); Influenza B, PCR Not Detected (NotDetected)
[2022-04-13 10:28] LABS: Basophils # 0.2 K/mm3 (0-0.2); Basophils % 2.7 % (0.1-2.0); Eosinophils # 0.5 K/mm3 (0.0-0.4); Eosinophils % 6.1 % (0.1-12.0); Hematocrit 45.3 % (37.0-47.0); Hemoglobin 14.8 g/dL (12.2-16.2); Lymphocytes % 22.6 % (10-50); Mean Corpuscular HGB Conc 32.6 g/dL (31.8-35.4); Mean Corpuscular Hemoglobin 31.5 pg (27.0-31.2); Mean Corpuscular Volume 96.8 fl (81-99); Mean Platelet Volume 9.3 fl (7.4-10.4); Monocytes # 0.3 K/mm3 (0.1-1.0); Neutrophils # 5.7 K/mm3 (1.8-7.8); Neutrophils % 65.7 % (37.0-80.0); Platelet Count 312 K/mm3 (142-424); Red Blood Count 4.69 M/mm3 (4.20-5.40); White Blood Count 8.7 K/mm3 (4.8-10.8)
[2022-04-13 10:30] VITALS: BP 120/89; PULSE 65; O2SAT 100
[2022-04-13 10:33] LABS: Chloride 103 mmol/L (98-107); Potassium 3.1 mmoL/L (3.5-5.1); Sodium 139 mmol/L (136-145)
[2022-04-13 10:36] LABS: Alanine Aminotransferase 41 U/L (12-78); Albumin Level 4.4 g/dl (3.5-5.0); Albumin/Globulin Ratio 1.7 (1.1-1.8); Alkaline Phosphatase 90 U/L (38-126); Anion Gap 11.1 mEq/L (5-15); Aspartate Amino Transferase 37 U/L (14-36); Bilirubin,Total 0.5 mg/dl (0.2-1.3); Blood Urea Nitrogen 10 mg/dl (7-17); Calcium 9.4 mg/dl (8.4-10.2); Carbon Dioxide 28 mmol/L (22.0-30.0); Creatinine Clearance Estimated 86 mL/min (50-200); Estimated Glomerular Filt Rate 53 ml/min (>60); GFR (African American) 64 ML/MIN (>60); Globulin 2.6 g/dL (1.3-3.2); Glucose 169 mg/dl (74-100)
[2022-04-13 11:00] VITALS: BP 131/91
--- NOTE | 2022-04-13 11:02 | PC.NURSE ---
checked on pt at this time, given warm blanket, pt sitting up on the bed, states she is comfortable and no other needs at this time. Will continue to monitor
--- NOTE | 2022-04-13 11:51 | PC.NURSE ---
pt given chiki mist to drink, pt sitting up on side of the bed. Will continue to monitor
[2022-04-13 12:01] VITALS: BP 110/87; PULSE 87; RESP 16; TEMP 36.6; O2SAT 97
== END 2022-04-13 12:02 | disposition home or self-care (01) ==
PROVIDERS: Emergency Provider Emergency Medicine; PCP Emergency Medicine
DX: K52.9 Noninfective gastroenteritis and colitis, unspecified (principal); E86.0 Dehydration; Z88.5 Allergy status to narcotic agent; Z88.0 Allergy status to penicillin; Z88.8 Allergy status to other drugs, medicaments and biological substances; Z85.9 Personal history of malignant neoplasm, unspecified; F41.9 Anxiety disorder, unspecified; K21.9 Gastro-esophageal reflux disease without esophagitis; E78.5 Hyperlipidemia, unspecified; I10 Essential (primary) hypertension; G43.909 Migraine, unspecified, not intractable, without status migrainosus; R56.9 Unspecified convulsions; M19.90 Unspecified osteoarthritis, unspecified site
CPT/HCPCS: 80053; 85025; 96360; 96375; 99284; C9803; J2405; U0003; U0005

== ENCOUNTER → 2022-04-18 14:26 | Outpatient (CLI) | payer MEDICAID, SELFPAY | PROVIDERS: PCP Emergency Medicine; Visit Provider Emergency Medicine | DX: R82.90 Unspecified abnormal findings in urine (principal) | CPT/HCPCS: 87086 ==

== ENCOUNTER → 2022-04-23 10:26 | Outpatient (CLI) | payer MEDICAID, SELFPAY ==
--- NOTE | 2022-04-23 10:26 | CT_ITS ---
FINAL REPORT CLINICAL HISTORY: abdominal pain, RIGHT FLANK PAIN, HX KIDNEY STONES FINDINGS: Axial CT images of the abdomen and pelvis were obtained without intravenous contrast. Coronal reformatted images were also obtained.This study was performed with techniques to keep radiation doses as low as reasonably achievable (ALARA). Individualized dose reduction techniques using automated exposure control or adjustment of mA and/or kV according to the patient's size were employed. Abdomen: There are 2, less than 5 mm, right middle lobe nodules that are nonspecific. The gallbladder is present. The liver is fatty infiltrated. The spleen and pancreas have an unremarkable, unenhanced appearance. There is a 13 mm low-attenuation focus in the mid right kidney with a 7 mm calcification within it of uncertain etiology. There is no hydronephrosis. No inflammatory process is identified. Pelvis: Images of the pelvis reveal no evidence of ureteral dilation or ureteral stone.No mass or abnormal fluid collection is identified. The appendix is not identified. There is diverticulosis of the sigmoid colon. There has been hysterectomy. IMPRESSION: Low-attenuation focus in the mid right kidney containing a calcification of uncertain etiology. This could represent a small mass with partial calcification or a calyceal diverticulum with a stone. Renal mass protocol CT may be helpful. Reviewed, Interpreted and Dictated by Lizandro Busch III, MD Transcribed by Néstor Ness Authenticated and [facility]
== END ==
PROVIDERS: PCP Emergency Medicine; Visit Provider Emergency Medicine
DX: R10.9 Unspecified abdominal pain (principal)
CPT/HCPCS: 74176

== ENCOUNTER → 2022-05-07 10:02 | Outpatient (CLI) | payer MEDICAID, SELFPAY ==
--- NOTE | 2022-05-07 10:03 | CT_ITS ---
FINAL REPORT TECHNIQUE: Axial CT images of the abdomen and pelvis were obtained before and after the administration of IV contrast. Oral contrast was administered.This study was performed with techniques to keep radiation doses as low as reasonably achievable (ALARA). Individualized dose reduction techniques using automated exposure control or adjustment of mA and/or kV according to the patient''s size were employed. CLINICAL HISTORY: Renal mass seen on prior exam COMPARISON: 04/23/2022 FINDINGS: Abdomen: The lung bases are clear. The heart is normal in size. The liver is fatty infiltrated. Moderate vascular calcifications are noted.. The spleen is unremarkable. No adrenal masses present. The pancreas has an unremarkable appearance. The kidneys enhance normally. The aorta is normal in caliber. There is no free fluid or adenopathy. No mass or abnormal fluid collection is seen. Precontrast images demonstrate 6 mm calcification in the mid right kidney with a low-attenuation focus seen anteriorly measuring 10 mm. This partially fills with contrast on delayed imaging consistent with caliceal diverticulum containing stone. Other renal mass is identified. Pelvis: The appendix is not well visualized. The urinary bladder is unremarkable. No inflammatory process is seen. Are bilateral, presumed ovarian cysts measuring up to 2.7 cm on the left. There is no evidence of bowel obstruction. IMPRESSION: Previously seen right renal mass consistent with caliceal diverticulum containing stone. Reviewed, Interpreted and Dictated by Lizandro Busch III, MD Transcribed by Jaclyn Dumont Authenticated and [facility]
== END ==
PROVIDERS: PCP Emergency Medicine; Visit Provider Emergency Medicine
DX: N28.89 Other specified disorders of kidney and ureter (principal)
CPT/HCPCS: 74170; Q9967

== ENCOUNTER → 2022-06-27 17:53 | Outpatient (CLI) | payer MEDICAID, SELFPAY ==
[2022-06-27 15:15] LABS: Benzodiazepines Screen,Urine Negative ng/ml (<200)
[2022-06-27 15:16] LABS: Amphetamine/Metha Screen,Urine Negative ng/ml (<1000)
[2022-06-27 15:17] LABS: Barbiturates Screen,Urine Negative ng/ml (<200); Cannabinoid Screen,Urine Negative ng/ml (<50)
[2022-06-27 15:18] LABS: Cocaine Screen,Urine Negative ng/ml (<300); Methadone Screen,Urine Negative ng/ml (<300)
[2022-06-27 15:19] LABS: Opiate Screen,Urine Negative ng/ml (<300)
[2022-06-27 15:20] LABS: Phencyclidine Screen,Urine Negative ng/ml (<25)
== END ==
PROVIDERS: PCP Emergency Medicine; Visit Provider Emergency Medicine
DX: Z79.899 Other long term (current) drug therapy (principal)
CPT/HCPCS: 80305

== ENCOUNTER → 2022-07-04 09:34 | Outpatient (CLI) | payer MEDICAID, SELFPAY ==
--- NOTE | 2022-07-04 09:34 | US_ITS ---
FINAL REPORT CLINICAL HISTORY: abdominal pain FINDINGS: ULTRASOUND RIGHT UPPER QUADRANT Sonographic imaging of the right upper quadrant was obtained. The pancreas is partially obscured. The liver has increased echogenicity consistent fatty infiltration. There is a trace amount of sludge within the gallbladder with no evidence of gallstones. There is no gallbladder wall thickening. There is no biliary ductal dilatation. The common duct is normal at 3 mm. The right kidney measures 10.7 cm in length. There is an 8 mm echogenic shadowing stone right renal stone. There is no hydronephrosis. IMPRESSION: Fatty liver. Right renal stone with no hydronephrosis. Reviewed, Interpreted and Dictated by Tyron Chakraborty MD Transcribed by Jemima Menon Authenticated and [facility]
== END ==
PROVIDERS: PCP Emergency Medicine; Visit Provider Emergency Medicine
DX: R10.9 Unspecified abdominal pain (principal)
CPT/HCPCS: 76705

== ENCOUNTER → 2022-07-19 10:00 | Outpatient (CLI) | payer MEDICAID, SELFPAY ==
--- NOTE | 2022-07-19 10:04 | NM_ITS ---
FINAL REPORT CLINICAL HISTORY: sludge in gallbladder 10:50 am 8.23mci tc choletec injected into rt ant pt drank ensure no pain after drinking FINDINGS: Sequential anterior projection images of the abdomen were obtained after the intravenous injection of 8.23 mCi technetium 99m Choletec. There is normal uptake of radiotracer by the liver. The bile ducts are visualized by 5 minutes. Gallbladder activity is seen by 20 minutes. Bowel activity is noted by 5 minutes. After 1 hour, 8 oz of Ensure was ingested for calculation of gallbladder ejection fraction. The gallbladder ejection fraction is 69 %, which is within normal limits. IMPRESSION: No evidence of cystic duct or bile duct obstruction. Normal gallbladder ejection fraction of 50%. Reviewed, Interpreted and Dictated by Lizandro Busch III, MD Transcribed by Jaclyn Dumont Authenticated and [facility]
== END ==
PROVIDERS: PCP Emergency Medicine; Visit Provider Emergency Medicine
DX: K82.8 Other specified diseases of gallbladder (principal)
CPT/HCPCS: 78226; A9537

== ENCOUNTER → 2022-07-30 15:23 | Outpatient (CLI) | payer MEDICAID, SELFPAY | PROVIDERS: PCP Emergency Medicine; Visit Provider Internal Medicine | DX: Z01.812 Encounter for preprocedural laboratory examination (principal); Z20.822 Contact with and (suspected) exposure to COVID-19; Z13.810 Encounter for screening for upper gastrointestinal disorder | CPT/HCPCS: C9803; U0003; U0005 ==

== ENCOUNTER 2022-08-01 11:59 | Day surgery (SDC) | payer MEDICAID, SELFPAY ==
[2022-08-01 12:28] VITALS: BP 117/88; PULSE 74; RESP 16; TEMP 36.1; O2SAT 96; BMI 26.6
--- NOTE | 2022-08-01 13:46 | HMH.SCOPE ---
Procedure: Date: 08/01/22 Patient Date of :: 1975 Procedure Performed:: EGD Indications:: Abdominal pain Performing Provider:: Neptali Keller MD Referring Provider:: Uli Ernandez MD Sedation:: See RN notes Procedure:: The gastroscope was gently passed through the incisoral orifice into the oral cavity and under direct visualization the esophagus was intubated. The endoscope was passed down the esophagus, through the stomach, and into the duodenum. Color, texture, mucosa, and anatomy of the esophagus, stomach, and duodenum were carefully examined with the scope. Findings:: Oropharynx: normal Esophagus: normal EG Junction: intact at 38 cm Cardia: normal Fundus: normal Body: Gastritis. Biopsies obtained Antrum: Erosive gastritis. Biopsies obtained Duodenal bulb: Clean based superficial ulcer approximately 1 cm in size. Few small scattered ulcerations. Duodenitis. Biopsies obtained Duodenum (second and third portion): normal Impression: Distal erosive gastritis Duodenal ulcers Recommendations:: Await pathology results Avoid NSAIDs Increaes pantoprazole to 40 mg two times per day x 2-3 months Carafate 1 gm QID x 1 month Repeat EGD in 3 months Complications:: none Estimated blood obtained (mL): 0
[2022-08-01 13:53] VITALS: BP 111/75; PULSE 63; RESP 18; TEMP 36.1; O2SAT 93
[2022-08-01 14:03] VITALS: BP 123/89; PULSE 69; RESP 18; O2SAT 99
[2022-08-01 14:13] VITALS: BP 140/86; PULSE 64; RESP 18; O2SAT 99
[2022-08-01 14:19] VITALS: BP 140/91; PULSE 67; RESP 18; O2SAT 100
--- NOTE | 2022-08-01 16:16 | P.PN_ITS ---
PFSH PFS Medical History (Updated 08/01/22 @ 12:27 by Agustina Ash RN) History of diverticulitis History of gastroesophageal reflux (GERD) Hyperlipidemia Hypertension Irritable bowel syndrome (IBS) Kidney stone Migraine Osteoarthritis Palpitations Surgical History (Updated 08/01/22 @ 12:27 by Agustina Ash RN) History of appendectomy History of delivery History of hysterectomy Family History (Updated 08/01/22 @ 12:28 by Agustina Ash RN) Other Family history of asthma Family history of bronchitis Family history of cancer Family history of hypertension Social History (Updated 08/01/22 @ 12:28 by Agustina Ash RN) Smoking Status: Current every day smoker tobacco type: cigarettes packs per day: 1 alcohol intake: never substance use type: former substance user and opiates current occupational status: unemployed Travel in the last 8 weeks: None household members: spouse housing: house number of children: 3 current occupational exposures/hazards: No caffeine: Yes [facility] Anesthesia Checklist Patient Identification Patient Identification: Arm Band Structural Data Admitted From: Home Planned Operative Procedure/s: EGD Consent for Planned Operative Procedure(s) Verified: Yes Verified Documents: Surgical Consent NPO Status Verified Time NPO: 00:00 Additional verifications Anesthesia Reactions: No Hx Blood Transfusions: No Blood Transfusion Reaction: No Airway Assessment C-Spine Mobility Assessed: Yes TMJ Mobility Assessed: Yes Neurological Assessment Level of Consciousness: Awake, Alert, Appropriate and Follows Commands Hx Seizures: No Numbness or tingling in extremities: No Genitourinary Assessment Voided 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
== END 2022-08-01 14:20 | disposition home or self-care (01) ==
PROVIDERS: PCP Emergency Medicine; Visit Provider Internal Medicine
PROC: 0DJ08ZZ Inspection of Upper Intestinal Tract, Via Natural or Artificial Opening Endoscopic (ICD-10-PCS; CPT 43235; principal; 2022-08-01 13:00)
DX: R10.9 Unspecified abdominal pain (principal); F17.210 Nicotine dependence, cigarettes, uncomplicated; Z79.899 Other long term (current) drug therapy; K29.70 Gastritis, unspecified, without bleeding
CPT/HCPCS: 43239

== ENCOUNTER 2022-08-13 16:46 | Emergency (ER) | payer MEDICAID, SELFPAY ==
[2022-08-13 16:47] VITALS: BP 150/104; PULSE 97; RESP 19; TEMP 36.8; O2SAT 99; BMI 27.0
--- NOTE | 2022-08-13 17:05 | HMH.EDNVD ---
Discharge Plan Disposition Patient Disposition: Home, Self-Care Condition: Fair Prescriptions Prescriptions: New metoclopramide HCl [Reglan] 10 mg tablet 10 mg PO Q6H 7 Days Qty: 28 0RF No Action hydrocodone-acetaminophen 5-325 mg tablet 1 tab PO TID PRN (Reason: pain) Qty: 90 0RF pantoprazole 40 mg tablet,delayed release (DR/EC) 40 mg PO BID 90 Days Qty: 180 2RF sucralfate [Carafate] 1 gram tablet 1 g PO QACHS sertraline 100 mg tablet 100 mg PO DAILY Qty: 90 1RF cyanocobalamin (vitamin B-12) 1,000 mcg tablet extended release See Rx Instructions .ROUTE .COMPLEX Rx Instructions: TAKE ONE TABLET BY MOUTH ONCE A DAY atorvastatin 20 mg tablet See Rx Instructions .ROUTE .COMPLEX Rx Instructions: TAKE ONE TABLET BY MOUTH ONCE A DAY FOR CHOLESTEROL aspirin 81 mg tablet,delayed release (DR/EC) See Rx Instructions .ROUTE .COMPLEX Rx Instructions: TAKE ONE TABLET BY MOUTH ONCE A DAY famotidine 20 mg tablet 20 mg PO DAILY hydrochlorothiazide 12.5 mg capsule See Rx Instructions .ROUTE .COMPLEX Rx Instructions: TAKE ONE CAPSULE BY MOUTH ONCE A DAY FOR BLOOD PRESSURE metoprolol succinate 25 mg tablet extended release 24 hr See Rx Instructions .ROUTE .COMPLEX Rx Instructions: TAKE ONE TABLET BY MOUTH ONCE A DAY ergocalciferol (vitamin D2) 1,250 mcg (50,000 unit) capsule See Rx Instructions .ROUTE .COMPLEX Rx Instructions: TAKE ONE CAPSULE BY MOUTH EVERY WEEK ondansetron 4 mg tablet,disintegrating See Rx Instructions .ROUTE .COMPLEX Rx Instructions: DISSOLVE 1 TABLET ON THE TONGUE 3 TIMES A DAY NEEDED FOR NAUSEA AND VOMITING ropinirole 4 mg tablet See Rx Instructions .ROUTE .COMPLEX Rx Instructions: TAKE ONE TABLET BY MOUTH AT BEDTIME NEEDED FOR RESTLESS LEG SYNDROME lactulose 10 gram/15 mL solution 1 g PO DAILY Aimovig Autoinjector 140 mg/mL auto-injector See Rx Instructions .ROUTE .COMPLEX Rx Instructions: INJECT SUBCUTANEOUSLY EVERY MONTH FOR MIGRAINES DIRECTED Ubrelvy 100 mg tablet See Rx Instructions .ROUTE .COMPLEX Rx Instructions: TAKE ONE TABLET BY MOUTH AT ONSET OF MIGRAINE SYMPTOMS, MAY REPEAT AFTER 2 HOURS. DO NOT EXCEED 2/24 HOURS OR 4/WEEK fluticasone furoate 5.9 ML spray,suspension See Rx Instructions .Route .COMPLEX Rx Instructions: USE 1 SPRAY IN EACH NOSTRIL EVERY DAY Referrals Follow up/Referrals: Uli Ernandez MD [Primary Care Provider] - See instructions Activity Restrictions/Add. Instructions Additional Instructions/Restrictions: Follow-up with your primary care physician in 2 to 3 days if your symptoms do not improve. Return to the emergency department immediately if you feel worse in any way. Keep all follow-up appointments as scheduled. Stick to a clear liquid diet for the next 2 days. Clinical Impressions Clinical Impression: Vomiting, Gastritis and gastroduodenitis Instructions Patient Instructions: DI for Gastritis, DI for Nausea -- Adult Discharge ED Provider: Tico Garcia Nausea/Vomiting/Diarrhea HPI General Chief complaint: Nausea/Vomiting/Diarrhea Stated complaint: vomiting blood, adb pain Time Seen by Provider: 08/13/22 17:08 History of Present Illness HPI Narrative: The patient presents to the emergency department complaining of hematemesis. She has been vomiting for about 1 to 2 months. She had an upper endoscopy performed earlier last month. They did biopsies. He has been on Zofran but continues to vomit. She states that she is allergic to Phenergan. She complains of some epigastric abdominal pain. She denies any fevers. She denies any hematochezia. Related Data Home Medications Medication Instructions Recorded Confirmed fluticasone furoate 27.5 See Rx Instructions .Route 11/24/21 08/01/22 mcg/actuation nasal .COMPLEX Allergy symptoms spray,suspension aspi
[2022-08-13 17:18] LABS: Chloride 101 mmol/L (98-107); Potassium 3.6 mmoL/L (3.5-5.1); Sodium 144 mmol/L (136-145)
[2022-08-13 17:21] LABS: Alanine Aminotransferase 28 U/L (12-78); Albumin Level 5.1 g/dl (3.5-5.0); Albumin/Globulin Ratio 1.6 (1.1-1.8); Alkaline Phosphatase 123 U/L (38-126); Anion Gap 16.6 mEq/L (5-15); Aspartate Amino Transferase 32 U/L (14-36); Bilirubin,Total 0.3 mg/dl (0.2-1.3); Blood Urea Nitrogen 13 mg/dl (7-17); Carbon Dioxide 30 mmol/L (22.0-30.0); Creatinine Clearance Estimated 74 mL/min (50-200); Estimated Glomerular Filt Rate 48 ml/min (>60); GFR (African American) 58 ML/MIN (>60); Globulin 3.1 g/dL (1.3-3.2); Total Protein,Serum 8.2 g/dl (6.3-8.2)
[2022-08-13 17:22] LABS: Calcium 9.6 mg/dl (8.4-10.2); Glucose 125 mg/dl (74-100)
[2022-08-13 17:23] LABS: Basophils # 0.3 K/mm3 (0-0.2); Basophils % 1.9 % (0.1-2.0); Eosinophils # 0.6 K/mm3 (0.0-0.4); Eosinophils % 4.3 % (0.1-12.0); Hematocrit 48.4 % (37.0-47.0); Hemoglobin 16.2 g/dL (12.2-16.2); Lymphocytes # 2.9 K/mm3 (0.7-4.5); Lymphocytes % 19.8 % (10-50); Mean Corpuscular HGB Conc 33.4 g/dL (31.8-35.4); Mean Corpuscular Hemoglobin 30.7 pg (27.0-31.2); Mean Platelet Volume 9.2 fl (7.4-10.4); Monocytes # 0.5 K/mm3 (0.1-1.0); Monocytes % 3.1 % (1.7-9.3); Neutrophils # 10.2 K/mm3 (1.8-7.8); Neutrophils % 70.9 % (37.0-80.0); Platelet Count 366 K/mm3 (142-424); Red Blood Count 5.26 M/mm3 (4.20-5.40); Red Cell Distribution Width 13.3 % (11.5-17.5); White Blood Count 14.3 K/mm3 (4.8-10.8)
[2022-08-13 17:31] VITALS: BP 150/94; PULSE 78; O2SAT 87
[2022-08-13 18:00] VITALS: BP 157/103; PULSE 87; O2SAT 99
--- NOTE | 2022-08-13 18:00 | PC.NURSE ---
PT DOING A PO CHALLENGE
[2022-08-13 18:22] VITALS: BP 162/98; PULSE 85; RESP 18; TEMP 36.8; O2SAT 99
== END 2022-08-13 18:24 | disposition home or self-care (01) ==
PROVIDERS: Emergency Provider Emergency Medicine; PCP Emergency Medicine
DX: K92.0 Hematemesis (principal); R10.13 Epigastric pain; K21.9 Gastro-esophageal reflux disease without esophagitis; E78.5 Hyperlipidemia, unspecified; K58.9 Irritable bowel syndrome, unspecified; G43.909 Migraine, unspecified, not intractable, without status migrainosus; M19.90 Unspecified osteoarthritis, unspecified site; F17.210 Nicotine dependence, cigarettes, uncomplicated; Z79.51 Long term (current) use of inhaled steroids; Z79.82 Long term (current) use of aspirin; Z79.899 Other long term (current) drug therapy; Z88.0 Allergy status to penicillin; Z88.5 Allergy status to narcotic agent; Z88.8 Allergy status to other drugs, medicaments and biological substances; Z82.49 Family history of ischemic heart disease and other diseases of the circulatory system
CPT/HCPCS: 80053; 85025; 96361; 96374; 96375; 99284; J2405

== ENCOUNTER 2022-10-04 18:33 | Emergency (ER) | payer MEDICAID, SELFPAY ==
[2022-10-04 18:44] VITALS: BP 123/80; PULSE 115; RESP 20; TEMP 37; O2SAT 97; BMI 27.0
[2022-10-04 18:50] LABS: Coronavirus 19, PCR Not Detected (NotDetected); Influenza B, PCR Not Detected (NotDetected)
[2022-10-04 19:24] LABS: Influenza A, PCR Detected (NotDetected)
--- NOTE | 2022-10-04 19:58 | HMH.EDGENADL ---
Discharge Plan Disposition Patient Disposition: Home, Self-Care Condition: Good Prescriptions Prescriptions: New oseltamivir [Tamiflu] 75 mg capsule 75 mg PO BID Qty: 10 0RF benzonatate 100 mg capsule 100 mg PO TID PRN (Reason: Cough) Qty: 10 0RF No Action hydrocodone-acetaminophen 5-325 mg tablet 1 tab PO TID PRN (Reason: pain) Qty: 90 0RF pantoprazole 40 mg tablet,delayed release (DR/EC) 40 mg PO BID 90 Days Qty: 180 2RF sucralfate [Carafate] 1 gram tablet 1 g PO QACHS ropinirole 4 mg tablet See Rx Instructions .ROUTE .COMPLEX Qty: 30 2RF Dose Instruction: TAKE ONE TABLET BY MOUTH AT BEDTIME NEEDED FOR RESTLESS LEG SYNDROME Rx Instructions: TAKE ONE TABLET BY MOUTH AT BEDTIME NEEDED FOR RESTLESS LEG SYNDROME atorvastatin 20 mg tablet See Rx Instructions .ROUTE .COMPLEX Qty: 30 2RF Dose Instruction: TAKE ONE TABLET BY MOUTH ONCE A DAY FOR CHOLESTEROL Rx Instructions: TAKE ONE TABLET BY MOUTH ONCE A DAY FOR CHOLESTEROL ergocalciferol (vitamin D2) 1,250 mcg (50,000 unit) capsule See Rx Instructions .ROUTE .COMPLEX Qty: 4 2RF Dose Instruction: TAKE ONE CAPSULE BY MOUTH EVERY WEEK Rx Instructions: TAKE ONE CAPSULE BY MOUTH EVERY WEEK hydrochlorothiazide 12.5 mg capsule See Rx Instructions .ROUTE .COMPLEX Qty: 30 2RF Dose Instruction: TAKE ONE CAPSULE BY MOUTH ONCE A DAY FOR BLOOD PRESSURE Rx Instructions: TAKE ONE CAPSULE BY MOUTH ONCE A DAY FOR BLOOD PRESSURE cyanocobalamin (vitamin B-12) 1,000 mcg tablet extended release See Rx Instructions .ROUTE .COMPLEX Qty: 30 2RF Dose Instruction: TAKE ONE TABLET BY MOUTH ONCE A DAY Rx Instructions: TAKE ONE TABLET BY MOUTH ONCE A DAY famotidine 20 mg tablet See Rx Instructions .ROUTE .COMPLEX Qty: 30 0RF Dose Instruction: TAKE ONE TABLET BY MOUTH ONCE A DAY Rx Instructions: TAKE ONE TABLET BY MOUTH ONCE A DAY metoprolol succinate 25 mg tablet extended release 24 hr See Rx Instructions .ROUTE .COMPLEX Qty: 30 2RF Dose Instruction: TAKE ONE TABLET BY MOUTH ONCE A DAY Rx Instructions: TAKE ONE TABLET BY MOUTH ONCE A DAY Aimovig Autoinjector 140 mg/mL auto-injector See Rx Instructions .ROUTE .COMPLEX Qty: 1 2RF Dose Instruction: INJECT SUBCUTANEOUSLY EVERY MONTH FOR MIGRAINES DIRECTED Rx Instructions: INJECT SUBCUTANEOUSLY EVERY MONTH FOR MIGRAINES DIRECTED ondansetron 4 mg tablet,disintegrating See Rx Instructions .ROUTE .COMPLEX Rx Instructions: DISSOLVE 1 TABLET ON THE TONGUE 3 TIMES A DAY NEEDED FOR NAUSEA AND VOMITING lactulose 10 gram/15 mL solution 1 g PO DAILY Ubrelvy 100 mg tablet See Rx Instructions .ROUTE .COMPLEX Rx Instructions: TAKE ONE TABLET BY MOUTH AT ONSET OF MIGRAINE SYMPTOMS, MAY REPEAT AFTER 2 HOURS. DO NOT EXCEED 2/24 HOURS OR 4/WEEK metoclopramide HCl [Reglan] 10 mg tablet 10 mg PO Q6H 7 Days Qty: 28 0RF fluticasone furoate 5.9 ML spray,suspension See Rx Instructions .Route .COMPLEX Rx Instructions: USE 1 SPRAY IN EACH NOSTRIL EVERY DAY Referrals Follow up/Referrals: Uli Ernandez MD [Primary Care Provider] - See instructions Activity Restrictions/Add. Instructions Additional Instructions/Restrictions: Tamiflu as prescribed. Albuterol inhaler 4 times a day as needed for wheezing or shortness of breath. Tessalon Perles as needed for cough. ADDITIONAL INSTRUCTIONS FOR INFLUENZA (FLU): Rest, drink plenty of fluids. Tylenol or Ibuprofen for fever and/or aches and pains. Monitor your symptoms. IF YOU HAVE AN EMERGENCY WARNING SIGN (INCLUDING TROUBLE BREATHING), SEEK EMERGENCY MEDICAL CARE IMMEDIATELY. Influenze Isolation: People with influenza should isolate for 5 days. Then if they are asymptomatic (no symptoms) or their symptoms are resolving (without fever for 24 hours), you may end isolation.
[2022-10-04 20:58] VITALS: BP 123/80; PULSE 115; RESP 16; TEMP 37; O2SAT 97
== END 2022-10-04 21:07 | disposition home or self-care (01) ==
PROVIDERS: Emergency Provider Emergency Medicine; PCP Emergency Medicine
DX: J10.1 Influenza due to other identified influenza virus with other respiratory manifestations (principal); R06.02 Shortness of breath; R50.9 Fever, unspecified; R05.9 Cough, unspecified; R09.81 Nasal congestion; Z20.822 Contact with and (suspected) exposure to COVID-19; I10 Essential (primary) hypertension; E78.5 Hyperlipidemia, unspecified; K21.9 Gastro-esophageal reflux disease without esophagitis; K58.9 Irritable bowel syndrome, unspecified; M19.90 Unspecified osteoarthritis, unspecified site; G43.909 Migraine, unspecified, not intractable, without status migrainosus; Z79.51 Long term (current) use of inhaled steroids; Z79.52 Long term (current) use of systemic steroids; Z79.899 Other long term (current) drug therapy; Z88.0 Allergy status to penicillin; Z88.5 Allergy status to narcotic agent; Z88.8 Allergy status to other drugs, medicaments and biological substances; Z87.442 Personal history of urinary calculi; Z82.5 Family history of asthma and other chronic lower respiratory diseases; Z80.9 Family history of malignant neoplasm, unspecified; Z82.49 Family history of ischemic heart disease and other diseases of the circulatory system
CPT/HCPCS: 99283; C9803; U0003; U0005

== ENCOUNTER 2022-11-28 08:19 | Day surgery (SDC) | payer MEDICAID, SELFPAY ==
[2022-11-26 13:47] VITALS: BMI 27.3
[2022-11-28] VITALS (7 sets, daily range): BP systolic 103–156; BP diastolic 69–86; PULSE 77–89; RESP 16–18; TEMP 36.2–36.3; O2SAT 91–100
--- NOTE | 2022-11-28 09:27 | EXP.ANES.CKL ---
[facility] Disclaimer: The information contained in this section may have been updated after the patient was seen, as this information can be updated by other users. Medical History History of diverticulitis History of gastroesophageal reflux (GERD) Hyperlipidemia Hypertension Irritable bowel syndrome (IBS) Kidney stone Migraine Osteoarthritis Palpitations Surgical History History of appendectomy History of delivery History of hysterectomy Family History Other Family history of asthma Family history of bronchitis Family history of cancer Family history of hypertension Social History Smoking Status: Never smoker alcohol intake: never substance use type: former substance user and opiates current occupational status: unemployed Travel in the last 8 weeks: None household members: spouse housing: house number of children: 3 current occupational exposures/hazards: No caffeine: Yes [facility] Anesthesia Checklist Patient Identification Patient Identification: Arm Band and Verbal (Name & ) Structural Data Admitted From: Home Planned Operative Procedure/s: EGD Consent for Planned Operative Procedure(s) Verified: Yes NPO Status Verified Time NPO: 00:00 Additional verifications Anesthesia Reactions: No Hx Blood Transfusions: No Blood Transfusion Reaction: No Airway Assessment C-Spine Mobility Assessed: Yes TMJ Mobility Assessed: Yes Dentition: Edentulous Neurological Assessment Level of Consciousness: Awake Hx Seizures: No Numbness or tingling in extremities: No Anesthesia Plan Anesthesia Risk discussed: Yes Anesthesia Plan: Verified ASA Class: II Anesthesia Type: MAC
--- NOTE | 2022-11-28 09:44 | HMH.SCOPE ---
Procedure: Date: 11/28/22 Patient Date of :: 1975 Procedure Performed:: EGD Indications:: The patient presented in July with complaint of abdominal pain, nausea and vomiting. She was found to have a superficial duodenal ulcer. She has had use of omeprazole 40 mg two times per day and carafate. Abdominal pain has resolved. She has had persistent nausea and vomiting after eating. Performing Provider:: Neptali Keller MD Referring Provider:: Uli Ernandez MD Sedation:: See RN records Procedure:: The gastroscope was gently passed through the incisoral orifice into the oral cavity and under direct visualization the esophagus was intubated. The endoscope was passed down the esophagus, through the stomach, and into the duodenum. Color, texture, mucosa, and anatomy of the esophagus, stomach, and duodenum were carefully examined with the scope. Findings:: Oropharynx: normal Esophagus: normal EG Junction: intact at 40 cm Cardia: normal Fundus: normal Body: Mild gastritis (biopsies obtained on last EGD) Antrum: Mild gastritis (biopsies obtained on last EGD) Pylorus: there was bengin appearing stenosis of pyloric channel. There was atleast mild resistance to passing the EGD scope thru this area. Dilation was performed sequentially with 12-15 mm tts balloon of the pylorus. Duodenal bulb: normal Duodenum (second and third portion): normal Impression: Mild gastritis Pyloric stenosis Recommendations:: Continue omeprazole 40 mg 1-2 times per day Recommend diet with smaller portion meals, less roughage and fatty meals Consider UGI barium study and gastric emptying study. Nausea and vomiting may be secondary to delayed gastric emptying with pyloric stenosis Avoid NSAIDs when possible Return for EGD as needed Complications:: None Estimated blood obtained (mL): 0
== END 2022-11-28 10:40 | disposition home or self-care (01) ==
PROVIDERS: PCP Emergency Medicine; Visit Provider Internal Medicine
PROC: 0DJ08ZZ Inspection of Upper Intestinal Tract, Via Natural or Artificial Opening Endoscopic (ICD-10-PCS; CPT 43235; principal; 2022-11-28 09:30)
DX: R11.2 Nausea with vomiting, unspecified (principal); K29.70 Gastritis, unspecified, without bleeding; K31.1 Adult hypertrophic pyloric stenosis
CPT/HCPCS: 43245; C1726

== ENCOUNTER → 2023-06-03 23:00 | Outpatient (CLI) | payer MEDICAID, SELFPAY ==
[2023-06-03 18:40] LABS: Alanine Aminotransferase 19 U/L (12-78); Albumin Level 4.4 g/dl (3.5-5.0); Albumin/Globulin Ratio 1.8 (1.1-1.8); Alkaline Phosphatase 109 U/L (38-126); Anion Gap 12.4 mEq/L (5-15); Aspartate Amino Transferase 24 U/L (14-36); Bilirubin,Total 0.3 mg/dl (0.2-1.3); Blood Urea Nitrogen 12 mg/dl (7-17); Calcium 9.4 mg/dl (8.4-10.2); Carbon Dioxide 27 mmol/L (22.0-30.0); Chloride 104 mmol/L (98-107); Chol/HDL Ratio 4.3 (1-3.5); Cholesterol 196 mg/dl (140-200); Estimated Glomerular Filt Rate 53 ml/min (>60); GFR (African American) 64 ML/MIN (>60); Globulin 2.5 g/dL (1.3-3.2); Glucose 91 mg/dl (74-100); HDL Cholesterol 46 mg/dl (40-60); Potassium 3.4 mmoL/L (3.5-5.1); Sodium 140 mmol/L (136-145); Total Protein,Serum 6.9 g/dl (6.3-8.2); Triglycerides 341 mg/dl (30-150); VLDL Cholesterol 68 mg/dL (0-40)
[2023-06-03 18:41] LABS: Basophils % 0.5 % (0.1-2.0); Eosinophils # 0.5 K/mm3 (0.0-0.4); Eosinophils % 5.5 % (0.1-12.0); Hematocrit 44.9 % (37.0-47.0); Hemoglobin 14.5 g/dL (12.2-16.2); Lymphocytes % 33.5 % (10-50); Mean Corpuscular HGB Conc 32.3 g/dL (31.8-35.4); Mean Corpuscular Hemoglobin 29.6 pg (27.0-31.2); Mean Corpuscular Volume 91.6 fl (81-99); Mean Platelet Volume 9.4 fl (7.4-10.4); Monocytes # 0.4 K/mm3 (0.1-1.0); Monocytes % 4.6 % (1.7-9.3); Neutrophils % 55.9 % (37.0-80.0); Platelet Count 288 K/mm3 (142-424); Red Blood Count 4.91 M/mm3 (4.20-5.40); Red Cell Distribution Width 13.4 % (11.5-17.5)
[2023-06-03 18:58] LABS: C-Reactive Protein 1.3 mg/L (0-4); Direct LDL Cholesterol 92.45 mg/dL (100-129)
[2023-06-03 19:00] LABS: T4 (Thyroxine) 9.4 ug/dl (5.53-11.0)
[2023-06-03 19:04] LABS: 25-OH Vitamin D, Total 40.6 ng/mL (30-100)
[2023-06-03 19:14] LABS: Thyroid Stimulating Hormone 2.89 uIU/mL (0.465-4.68)
[2023-06-03 19:52] LABS: Vitamin B12 > 1000 pg/mL (239-931)
[2023-06-03 21:45] LABS: Erythrocyte Sedimentation Rate 13 mm/hr (0-20)
[2023-06-05 12:17] LABS: RA Latex Turbid. <10.0 IU/mL (<14.0)
[2023-06-05 13:15] LABS: Anti-Centromere B Antibodies <0.2 AI (0.0-0.9); Anti-DNA (DS) Ab Qn <1 IU/mL (0-9); Anti-Jo-1 <0.2 AI (0.0-0.9); Anti-Smith Antibody <0.2 AI (0.0-0.9); Antichromatin Antibodies <0.2 AI (0.0-0.9); Antiscleroderma-70 Antibodies <0.2 AI (0.0-0.9); RNP Antibodies <0.2 AI (0.0-0.9); Sjogren's Anti-SS-A <0.2 AI (0.0-0.9); Sjogren's Anti-SS-B <0.2 AI (0.0-0.9)
[2023-06-05 14:50] LABS: Anti-Cyclic Citrullinated Pept 3 units (0-19)
== END ==
PROVIDERS: PCP Emergency Medicine; Visit Provider Emergency Medicine
DX: M25.50 Pain in unspecified joint (principal)
CPT/HCPCS: 80053; 80061; 82306; 82607; 84436; 84443; 85025; 85651; 86140; 86200; 86225; 86235; 86431

== ENCOUNTER → 2023-09-27 23:00 | Outpatient (CLI) | payer MEDICAID, SELFPAY ==
[2023-09-27 21:22] LABS: Amphetamine/Metha Screen,Urine Negative ng/ml (<1000)
[2023-09-27 21:23] LABS: Barbiturates Screen,Urine Negative ng/ml (<200); Benzodiazepines Screen,Urine Negative ng/ml (<200)
[2023-09-27 21:24] LABS: Cocaine Screen,Urine Negative ng/ml (<300)
[2023-09-27 21:25] LABS: Methadone Screen,Urine Negative ng/ml (<300)
[2023-09-27 21:26] LABS: Opiate Screen,Urine Positive ng/ml (<300)
[2023-09-27 21:27] LABS: Phencyclidine Screen,Urine Negative ng/ml (<25)
[2023-09-27 21:32] LABS: Cannabinoid Screen,Urine Negative ng/ml (<50)
== END ==
PROVIDERS: PCP Emergency Medicine; Visit Provider Emergency Medicine
DX: Z79.899 Other long term (current) drug therapy (principal)
CPT/HCPCS: 80305